=== PATIENT | female | born 1965 | race Caucasian/White ===

== ENCOUNTER 2017-10-04 16:41 | Emergency (ER) | payer OTHER ==
[2017-10-04] MEDS ORDERED: LORazepam 2 MG/ML INJ IM STA (16:52)
[2017-10-04] MEDS ORDERED: HALOPERIDOL LACTATE 5 MG/ML 1 ML VIAL IM STA (16:52)
[2017-10-04 17:03] VITALS: RESP 18
--- NOTE | 2017-10-04 17:15 | ED ---
General Adult HPI - General Chief complaint: Alcohol Stated complaint: ETOH Time Seen by Provider: 10/04/17 16:47 Source: patient, EMS Mode of arrival: EMS Limitations: no limitations - History of Present Illness Initial comments: 52 years old female intoxicated brought in by ambulance quite combative irritated and cooperative., She was uncooperative with the questions and exam to the point that she was danger to self as well as staff she was restrained and she was given Haldol 5 mg and Ativan 1 mg intramuscular for her safety and staff safety. - Related Data Home Medications Medication Instructions Recorded Confirmed Aspirin EC [Ecotrin Low Dose] 81 mg PO DAILY 12/18/16 12/18/16 EPINEPHrine (Auto Inject) [Epipen] 0.3 mg IM ONCE PRN 12/18/16 12/18/16 Previous Rx's Medication Instructions Recorded Albuterol Inhaler [Ventolin Hfa 2 puff INHALATION RT-QID PRN #1 12/22/16 Inhaler] inhaler Budesonide/Formoterol Fumarate 2 puff INHALATION BID #1 inhaler 12/22/16 [Symbicort 80-4.5 Mcg Inhaler] Escitalopram [Lexapro] 10 mg PO DAILY #30 tab 12/22/16 Folic Acid 1 mg PO DAILY@1200 #30 tab 12/22/16 Nicotine 14Mg/24Hr Patch [Habitrol] 1 patch TRANSDERM DAILY #12 patch 12/22/16 Thiamine [Vitamin B-1] 100 mg PO DAILY@1200 #30 tab 12/22/16 Allergies Allergy/AdvReac Type Severity Reaction Status Date / Time Penicillins Allergy Anaphylaxis Verified 12/18/16 17:32 spider venom Allergy Swelling Verified 12/18/16 17:31 Review of Systems ROS Statement: Those systems with pertinent positive or pertinent negative responses have been documented in the HPI. ROS Other: All systems not noted in ROS Statement are negative. Past Medical History Past Medical History: No Reported History Additional Past Medical History / Comment(s): Etoh History of Any Multi-Drug Resistant Organisms: None Reported Additional Past Surgical History / Comment(s): WISDOM TEETH Past Psychological History: Anxiety, Depression Smoking Status: Current every day smoker Past Alcohol Use History: Daily, Heavy Past Drug Use History: None Reported General Exam - General Exam Comments Initial Comments: General: Very combative and angry Skin: Skin is warm and dry and no rashes or lesions are noted. Eye: Pupils are equal, round and reactive to light, extra-ocular movements are intact; there is normal conjunctiva bilaterally. Ears, nose, mouth and throat: There are moist mucous membranes and no oral lesions. Neck: The neck is supple, there is no tenderness Cardiovascular: There is a regular rate and rhythm. No murmur, rub or gallop is appreciated. Respiratory: To auscultation bilateral, no wheezing no rhonchi no distress respiratory méndez noticed Gastrointestinal: Soft, non-distended, non-tender abdomen without masses or organomegaly noted. There is no rebound or guarding present. Bowel sounds are unremarkable. Back: There is no tenderness to palpation in the midline. There is no obvious deformity. Musculoskeletal: Normal ROM, no tenderness, There is no pedal edema. There is no calf tenderness or swelling. No cords were appreciated. Neurological: CN II-XII intact, Cranial nerves III through XII are intact. There are no obvious motor or sensory deficits. Coordination appears grossly intact. Speech is normal. Psychiatric: Cooperative combative irritable Limitations: no limitations Course Vital Signs 10/04/17 10/04/17 10/04/17 16:52 19:31 20:26 Temperature 97.4 F L Pulse Rate 96 91 84 Respiratory 18 18 18 Rate Blood Pressure 158/77 113/62 99/57 O2 Sat by Pulse 98 100 96 Oximetry 10/04/17 10/04/17 10/04/17 21:17 21:45 22:36 Temperature Pulse Rate 85 74 82 Respiratory 18 18 18 Rate Blood Pressure 110/65 103/65 103/65 O2 Sat by Pulse 96 100 98 Oximetry 10/04/17 10/05/17 23:26 00:26 Temperature Pulse Rate 78 78 Respiratory 18 18 Rate Blood Pressure 113/73 101/64 O2 Sat by Pulse 100 100 Oximetry At 230 am She awakened, alert, oriented, cooperative, she denies any homicidal or suicidal ideation, CBC, compressive metabolic panel, urine drug screen, head CT are normal she be discharged to go home as soon as his family member, Procedures - Restraint - Face to Face Restraint Occurrence 1 Patient's Immediate Situation: Endangers self safety, Endangers others' safety Patient's Reaction to the Intervention: Angry, Aggressive, Combative Patient's Medical & Behavioral Condition: Agitated Patient's Medical & Behavioral Condition - Comment: Very aggressive verbally and physically obviously danger to self and the staff Need to Continue or Terminate Restraint or Seclusion: Continue (Patient was restrained at 1700 approximately) Face to Face Eval of Restraint Date: 10/04/17 Face to Face Eval of Restraint Time: 17:19 Medical Decision Making - Lab Data Result diagrams: 10/04/17 17:26 10/04/17 17:26 Lab Results 10/04/17 10/04/17 10/04/17 Range/Units 17:13 17:26 17:26 WBC 6.3 (3.8-10.6) k/uL RBC 4.21 (3.80-5.40) m/uL Hgb 12.6 (11.4-16.0) gm/dL Hct 38.5 (34.0-46.0) % MCV 91.5 (80.0-100.0) fL MCH 29.9 (25.0-35.0) pg MCHC 32.7 (31.0-37.0) g/dL RDW 13.6 (11.5-15.5) % Plt Count 271 (150-450) k/uL Neutrophils % 55 % Lymphocytes % 32 % Monocytes % 7 % Eosinophils % 2 % Basophils % 1 % Neutrophils # 3.5 (1.3-7.7) k/uL Lymphocytes # 2.0 (1.0-4.8) k/uL Monocytes # 0.4 (0-1.0) k/uL Eosinophils # 0.1 (0-0.7) k/uL Basophils # 0.1 (0-0.2) k/uL Sodium 145 (137-145) mmol/L Potassium 3.5 (3.5-5.1) mmol/L Chloride 111 H (98-107) mmol/L Carbon Dioxide 24 (22-30) mmol/L Anion Gap 10 mmol/L BUN 12 (7-17) mg/dL Creatinine 0.67 (0.52-1.04) mg/dL Est GFR (CKD-EPI)AfAm >90 (>60 ml/min/1.73 sqM) Est GFR (CKD-EPI)NonAf >90 (>60 ml/min/1.73 sqM) Glucose 94 (74-99) mg/dL Calcium 8.8 (8.4-10.2) mg/dL Total Bilirubin 0.2 (0.2-1.3) mg/dL AST 24 (14-36) U/L ALT 23 (9-52) U/L Alkaline Phosphatase 107 (38-126) U/L Total Protein 7.0 (6.3-8.2) g/dL Albumin 3.9 (3.5-5.0) g/dL Urine Color Colorless Urine Appearance Clear (Clear) Urine pH 6.0 (5.0-8.0) Ur Specific Admire 1.002 (1.001-1.035) Urine Protein Negative (Negative) Urine Glucose (UA) Negative (Negative) Urine Ketones Negative (Negative) Urine Blood Negative (Negative) Urine Nitrite Negative (Negative) Urine Bilirubin Negative (Negative) Urine Urobilinogen <2.0 (<2.0) mg/dL Ur Leukocyte Esterase Negative (Negative) Urine Opiates Screen Not Detected (NotDetected) Ur Oxycodone Screen Not Detected (NotDetected) Urine Methadone Screen Not Detected (NotDetected) Ur Propoxyphene Screen Not Detected (NotDetected) Ur Barbiturates Screen Not Detected (NotDetected) U Tricyclic Antidepress Not Detected (NotDetected) Ur Phencyclidine Scrn Not Detected (NotDetected) Ur Amphetamines Screen Not Detected (NotDetected) U Methamphetamines Scrn Not Detected (NotDetected) U Benzodiazepines Scrn Not Detected (NotDetected) Urine Cocaine Screen Not Detected (NotDetected) U Marijuana (THC) Screen Not Detected (NotDetected) Disposition Clinical Impression: Intoxication Disposition: HOME SELF-CARE Condition: Good Is patient prescribed a controlled substance at d/c from ED?: No Referrals: None,Stated [Primary Care Provider] - 1-2 days
[2017-10-04 17:29] LABS: Appearance,Urine Clear (Clear); Bilirubin,Urine Negative (Negative); Blood,Urine Negative (Negative); Color,Urine Colorless; Glucose,Urine (UA) Negative (Negative); Ketones,Urine Negative (Negative); Leukocyte Esterase,Urine Negative (Negative); Nitrite,Urine Negative (Negative); Protein,Urine Negative (Negative); Specific Gravity,Urine 1.002 (1.001-1.035); Urobilinogen,Urine <2.0 mg/dL (<2.0)
[2017-10-04 17:39] LABS: Amphetamine Screen,Urine Not Detected (NotDetected); Barbiturate Screen,Urine Not Detected (NotDetected); Benzodiazepines Screen,Urine Not Detected (NotDetected); Cocaine Screen,Urine Not Detected (NotDetected); Methadone Screen, Urine Not Detected (NotDetected); Opiate Screen,Urine Not Detected (NotDetected); Oxycodone Screen, Urine Not Detected (NotDetected); Phencyclidine Screen,Urine Not Detected (NotDetected); Tricyclic Antidepressant,Urine Not Detected (NotDetected); Urn Cannabinoid Scrn Not Detected (NotDetected)
[2017-10-04 17:45] LABS: Basophils # (A) 0.1 k/uL (0-0.2); Basophils % (A) 1 %; Eosinophils # (A) 0.1 k/uL (0-0.7); Eosinophils % (A) 2 %; HCT 38.5 % (34.0-46.0); HGB 12.6 gm/dL (11.4-16.0); Lymphocytes % (A) 32 %; MCH 29.9 pg (25.0-35.0); MCHC 32.7 g/dL (31.0-37.0); MCV 91.5 fL (80.0-100.0); Mean Platelet Volume 8.1; Monocytes # (A) 0.4 k/uL (0-1.0); Monocytes % (A) 7 %; Neutrophils # (A) 3.5 k/uL (1.3-7.7); Neutrophils % (A) 55 %; Platelet Count 271 k/uL (150-450); RBC 4.21 m/uL (3.80-5.40); RDW 13.6 % (11.5-15.5); WBC 6.3 k/uL (3.8-10.6)
[2017-10-04 17:59] LABS: ALT 23 U/L (9-52); AST 24 U/L (14-36); Albumin 3.9 g/dL (3.5-5.0); Alkaline Phosphatase 107 U/L (38-126); Anion Gap 10 mmol/L; Blood Urea Nitrogen 12 mg/dL (7-17); Calcium 8.8 mg/dL (8.4-10.2); Carbon Dioxide 24 mmol/L (22-30); Chloride 111 mmol/L (98-107); Glucose 94 mg/dL (74-99); Potassium 3.5 mmol/L (3.5-5.1); Sodium 145 mmol/L (137-145); Total Bilirubin 0.2 mg/dL (0.2-1.3)
--- NOTE | 2017-10-04 18:29 | CT ---
EXAMINATION TYPE: CT brain wo con DATE OF EXAM: 10/04/2017 COMPARISON: None HISTORY: Altered mental status CT DLP: 855.4 mGycm Automated exposure control for dose reduction was used. FINDINGS: The ventricles and sulci appear normal. There is no mass effect nor midline shift. There is no sign o f intracranial hemorrhage. The calvarium is intact. IMPRESSION: NEGATIVE CT SCAN OF THE BRAIN.
[2017-10-05 04:29] VITALS: BP 138/83; PULSE 81; TEMP 98.3
== END 2017-10-05 04:25 | disposition home or self-care (01) ==
LOC: EC 16:41
DX: F10.129 Alcohol abuse with intoxication, unspecified (principal); R45.4 Irritability and anger; F17.200 Nicotine dependence, unspecified, uncomplicated; Z79.82 Long term (current) use of aspirin; Z88.0 Allergy status to penicillin; Z91.038 Other insect allergy status
CPT/HCPCS: 82075; 36415; 80053; 85025; 81003; 80306; 70450; 99285; 96372 ×2; J2060; J1630

== ENCOUNTER → 2018-01-14 | Outpatient (CLI) | payer OTHER ==
[2018-01-14 14:17] LABS: Basophils % (A) 1 %; Eosinophils # (A) 0.1 k/uL (0-0.7); Eosinophils % (A) 1 %; HCT 41.7 % (34.0-46.0); HGB 13.3 gm/dL (11.4-16.0); Lymphocytes # (A) 1.6 k/uL (1.0-4.8); Lymphocytes % (A) 33 %; MCV 97.1 fL (80.0-100.0); Mean Platelet Volume 7.5; Monocytes # (A) 0.3 k/uL (0-1.0); Monocytes % (A) 6 %; Neutrophils # (A) 2.7 k/uL (1.3-7.7); Neutrophils % (A) 55 %; Platelet Count 314 k/uL (150-450); RBC 4.29 m/uL (3.80-5.40); RDW 13.8 % (11.5-15.5); WBC 4.9 k/uL (3.8-10.6)
[2018-01-14 18:25] LABS: Albumin 4.3 g/dL (3.80-4.90); Albumin/Globulin Ratio 1.79 (1.20-2.10); Anion Gap 5.2 mmol/L (4.00-12.00); Calcium 9.2 mg/dL (8.7-10.3); Carbon Dioxide 28.8 mmol/L (21.6-31.8); Globulin 2.4 g/dL (2.1-3.7); Total Bilirubin 0.2 mg/dL (0.3-1.2); Total Protein 6.7 g/dL (6.2-8.2)
[2018-01-14 18:34] LABS: Rheumatoid Factor 13 IU/mL (0-15)
[2018-01-14 20:35] LABS: HIV 1 AB Non-Reactive (Non-Reactive); HIV AB P24 Non-Reactive (Non-Reactive); HIV P24 AG Non-Reactive (Non-Reactive)
[2018-01-14 22:43] LABS: Hemoglobin A1C 5.8 % (4.0-6.0)
[2018-01-15 13:06] LABS: ANA Pattern Speckled; ANA Pattern 2 See Footnote
[2018-01-15 14:16] LABS: Hepatitis A Antibody IgM Non-Reactive (Non-Reactive); Hepatitis B Core IgM Non-Reactive (Non-Reactive)
== END | disposition home or self-care (01) ==
LOC: LABWHC1 13:28
PROVIDERS: ATTEND Family Medicine
DX: I10 Essential (primary) hypertension (principal); B89 Unspecified parasitic disease; Z79.899 Other long term (current) drug therapy
CPT/HCPCS: 36415; 80053; 80074; 83036; 84443; 85025; 86038; 86039; 86431; 87390

== ENCOUNTER 2019-04-25 11:19 | Day surgery (SDC) | payer OTHER ==
[2019-04-24 10:23] VITALS: BMI 17.5
[~2019-04-25 11:19] MED LIST: DEXAMETHASONE SOD PHOSPHATE 10 MG/ML 1 ML VIAL IV ONE; HYDROmorphone 0.5 MG/0.5 ML SYRINGE IVP PRN; LACTATED RINGERS 1,000 ML IV SCH; MIDAZOLAM 2 MG/2 ML VIAL IV PRN; ONDANSETRON 4 MG/2 ML VIAL IVP ONE; Pre Op ABX Message 1 EACH MISC MISCELLANE ONE; SCOPOLAMINE 1.5MG/72HR PATCH TRANSDERM ONE
[2019-04-25 11:45] VITALS: TEMP 98.8
[2019-04-25] MEDS ORDERED: LIDOCAINE 1% (10MG/ML) FOR IV START INTRADERMA ONE (11:55)
[2019-04-25] MEDS ORDERED: LIDOCAINE 1% INJ 10MG/ML (20 ML MDV) ONE (13:00)
[2019-04-25] MEDS ORDERED: PROPOFOL 10 MG/ML 20 ML VIAL IV ONE (13:00)
[2019-04-25] MEDS ORDERED: MIDAZOLAM 2 MG/2 ML VIAL ONE (13:00)
[2019-04-25] MEDS ORDERED: fentaNYL (PF) 50 MCG/ML 2 ML AMP ONE (13:00)
[2019-04-25] MEDS ORDERED: BUPIVACAINE (PF) 0.5% 30 ML VIAL SQ ONE (13:30)
[2019-04-25] MEDS ORDERED: LIDOCAINE 2% (PF) 20 MG/ML 5 ML VIAL SQ ONE ×2 (13:31)
[2019-04-25] MEDS ORDERED: LIDOCAINE 2%-EPI 1:100,000 20 ML VIAL SQ ONE (13:49)
[2019-04-25] MEDS ORDERED: ROPIVACAINE 5 MG/ML 30 ML VIAL MISCELLANE ONE (13:49)
[2019-04-25 14:24] VITALS: RESP 16
[2019-04-25 14:53] VITALS: BP 139/79; PULSE 67
--- NOTE | 2019-04-30 14:34 | P.OP ---
Date of Procedure: 04/25/19 Preoperative Diagnosis: Left wrist volar ganglion cyst Postoperative Diagnosis: Left wrist volar ganglion cyst Procedure(s) Performed: Excision of left wrist volar ganglion cyst Anesthesia: MAC, local Surgeon: Erwin Montano Estimated Blood Loss (ml): 1 Pathology: other (cyst) Condition: stable Disposition: same day Indications for Procedure: The patient is a 53-year-old female who presented to the office with a left wrist mass and was diagnosed with a ganglion cyst. Treatment options (and associated risks and benefits) were reviewed; the patient elected to undergo surgical excision. In preop, additional questions were addressed and the patient wished to proceed with surgery. Consent forms were signed. The operative site was confirmed and marked. Description of Procedure: The patient was brought to the operative suite and positioned supine. The left arm was placed on a hand table and a tourniquet was applied. Monitored anesthesia was administered uneventfully. A time-out was performed, confirming patient identifiers, the operative side, site and the procedure to be performed: all team members expressed agreement. Using aseptic technique, local anesthetic was injected into the subcutaneous tissues around the planned incision. The left upper extremity was then prepped and draped in standard, sterile fashion. The limb was exsanguinated with an Esmarch and the tourniquet was inflated. Loupe magnification was utilized throughout the case for optimum visualization. A volar chevron incision was marked over the mass on the radial aspect of the wrist. The skin was sharply incised and the subcutaneous tissues were bluntly sp read, taking care to protect adjacent sensory nerve branches. The radial artery was identified and protected throughout the case. The mass was immediately identified in the subcutaneous tissues below the skin, just deep ulnar to the artery. It was encapsulated and somewhat lobulated with well-demarcated borders and had the appearance of a ganglion cyst. The cyst was mobilized and small perforating vessels were coagulated with bipolar cautery. The cyst was inadvertently decompressed during dissection and thick, clear mucinous fluid was expressed, consistent with a ganglion cyst. Once circum ferentially dissected free from the surrounding soft tissues, the cyst was sharply excised and sent for pathology. The cyst origin was identified at the STT joint and was gently debrided with a rongeur. The wound was visually and palpably explored: no residual soft tissue mass was appreciated. The tourniquet was released after 20 minutes at 250 mmHg; good hemostasis was achieved with manual pressure and bipolar cautery. The wound was thoroughly irrigated with normal saline. The incision was closed with interrupted 5-0 Nylon sutures. Additional local anesthetic with epinephrine was injected for adjunctive postoperative pain control and hemostasis. A sterile dressing was applied, followed by a resting plaster splint. All sponge, needle and instrument counts were correct at the end of the case. The patient tolerated the procedure well and was transferred to recovery in stable condition.
== END 2019-04-25 15:14 | disposition home or self-care (01) ==
LOC: OR 11:19
PROVIDERS: ATTEND Orthopaedic Surgery
DX: M67.432 Ganglion, left wrist (principal); F17.210 Nicotine dependence, cigarettes, uncomplicated; F41.9 Anxiety disorder, unspecified; F32.9 Major depressive disorder, single episode, unspecified; Z97.2 Presence of dental prosthetic device (complete) (partial); Z79.1 Long term (current) use of non-steroidal anti-inflammatories (NSAID); Z88.0 Allergy status to penicillin; Z88.8 Allergy status to other drugs, medicaments and biological substances; Z91.038 Other insect allergy status; Z91.040 Latex allergy status
CPT/HCPCS: 25111; 88304; J2250; J1100; J2405; J2001 ×2; J3010; J2795; J2704

== ENCOUNTER 2019-07-24 16:55 | Observation (INO) | payer OTHER ==
[2019-07-24] MEDS ORDERED: SODIUM CHLORIDE 0.9% 1,000 ML IV ONE ×2 (17:13→19:48)
[2019-07-24] MEDS ORDERED: ZIPRASIDONE 20 MG VIAL IM STA (17:14)
[2019-07-24] MEDS ORDERED: LORazepam 2 MG/ML INJ IM STA (17:14)
[2019-07-24] MEDS ORDERED: SODIUM CHLORIDE 0.9% 1,000 ML with MVI, ADULT NO.4 WITH VIT K 10 ML, THIAMINE 100 MG, F... IV ONE ×4 (17:30)
[2019-07-24 17:41] LABS: Basophils # (A) 0.1 k/uL (0-0.2); Basophils % (A) 1 %; Eosinophils # (A) 0.1 k/uL (0-0.7); Eosinophils % (A) 1 %; HCT 40.2 % (34.0-46.0); HGB 12.6 gm/dL (11.4-16.0); Hypochromasia Slight; Lymphocytes # (A) 2.2 k/uL (1.0-4.8); Lymphocytes % (A) 30 %; MCH 30.3 pg (25.0-35.0); MCHC 31.4 g/dL (31.0-37.0); MCV 96.2 fL (80.0-100.0); Mean Platelet Volume 7.9; Monocytes # (A) 0.3 k/uL (0-1.0); Monocytes % (A) 4 %; Neutrophils # (A) 4.4 k/uL (1.3-7.7); Neutrophils % (A) 59 %; Platelet Count 281 k/uL (150-450); RBC 4.17 m/uL (3.80-5.40); RDW 15.7 % (11.5-15.5); WBC 7.4 k/uL (3.8-10.6)
--- NOTE | 2019-07-24 17:49 | ED ---
General Adult HPI - General Chief complaint: Alcohol Stated complaint: ETOH Time Seen by Provider: 07/24/19 17:10 Source: patient, police, EMS, RN notes reviewed, old records reviewed Mode of arrival: EMS - History of Present Illness Initial comments: This is a 53-year-old female who presents to the emergency department intoxicated. According to police the patient was running around in traffic however she never made any comment about wanting to hurt herself she seemed to be distraught about a homosexual nephew. Patient is very uncooperative and will not give any history. At this time there is no other history available. Family members are in the waiting room and the police state that they need maybe petitioning the patient. - Related Data Home Medications Medication Instructions Recorded Confirmed EPINEPHrine (Auto Inject) [Epipen] 0.3 mg IM ONCE PRN 12/18/16 04/24/19 Cyanocobalamin (Vitamin B-12) 5,000 mcg PO DAILY 04/24/19 04/25/19 [Vitamin B-12] Naproxen Sodium [Aleve] 220 mg PO DAILY 04/24/19 04/24/19 Allergies Allergy/AdvReac Type Severity Reaction Status Date / Time Penicillins Allergy Anaphylaxis Verified 07/24/19 17:13 spider venom Allergy Swelling Verified 07/24/19 17:13 Review of Systems ROS Statement: Those systems with pertinent positive or pertinent negative responses have been documented in the HPI. ROS Other: All systems not noted in ROS Statement are negative. Past Medical History Past Medical History: No Reported History, Osteoarthritis (OA) Additional Past Medical History / Comment(s): GANGLION CYST LT WRIST History of Any Multi-Drug Resistant Organisms: None Reported Additional Past Surgical History / Comment(s): WISDOM TEETH Past Anesthesia/Blood Transfusion Reactions: No Reported Reaction Past Psychological History: Anxiety, Depression Smoking Status: Current every day smoker Past Alcohol Use History: None Reported Past Drug Use History: None Reported - Past Family History Father Family Medical History: Cancer General Exam - General Exam Comments Initial Comments: GENERAL: Patient is well-developed and well-nourished. Patient is nontoxic and well- hydrated and is in no acute distress. Patient is very uncooperative and appears to be intoxicated. ENT: Neck is soft and supple. No significant lymphadenopathy is noted. Oropharynx is clear. Moist mucous membranes. Neck has full range of motion without eliciting any pain. EYES: The sclera were anicteric and conjunctiva were pink and moist. Extraocular movements were intact and pupils were equal round and reactive to light. Eyelids were unremarkable. PULMONARY: Unlabored respirations. Good breath sounds bilaterally. No audible rales rhon chi or wheezing was noted. CARDIOVASCULAR: There is a regular rate and rhythm without any murmurs gallops or rubs. ABDOMEN: Soft and nontender with normal bowel sounds. SKIN: Skin is clear with no lesions or rashes and otherwise unremarkable. NEUROLOGIC: Patient is alert and oriented x3. Cranial nerves II through XII are grossly intact. Patient is able to move all 4 extremities. Normal speech, volume and content. Symmetrical smile. MUSCULOSKELETAL: Normal extremities with adequate strength and full range of motion. No lower extremity swelling or edema. No calf tenderness. LYMPHATICS: No significant lymphadenopathy is noted PSYCHIATRIC: Unable to assess Course Vital Signs 07/24/19 07/24/19 07/24/19 17:07 17:30 19:00 Temperature 98.3 F Pulse Rate 104 H 103 H 105 H Respiratory 22 18 18 Rate Blood Pressure 133/80 118/67 110/57 O2 Sat by Pulse 94 L 97 99 Oximetry Procedures - Restraint - Face to Face Restraint Occurrence 1 Patient's Immediate Situation: Endangers self safety, Endangers others' safety Patient's Reaction to the Intervention: Uncooperative, Aggressive, Combative Patient's Medical & Behavioral Condition: Agitated Need to Continue or Terminate Restraint or Seclusion: Continue Face to Face Eval of Restraint Date: 07/24/19 Face to Face Eval of Restraint Time: 17:06 Medical Decision Making - Medical Decision Making Patient was extremely uncooperative and aggressive. Patient was given Ativan and Geodon to control her. Patient was intoxicated and was petition by family so the patient will be admitted to [facility]. - Lab Data Result diagrams: 07/24/19 17:20 07/24/19 17: Lab Results 07/24/19 07/24/19 Range/Units 17:20 17:20 WBC 7.4 (3.8-10.6) k/uL RBC 4.17 (3.80-5.40) m/uL Hgb 12.6 (11.4-16.0) gm/dL Hct 40.2 (34.0-46.0) % MCV 96.2 (80.0-100.0) fL MCH 30.3 (25.0-35.0) pg MCHC 31.4 (31.0-37.0) g/dL RDW 15.7 H (11.5-15.5) % Plt Count 281 (150-450) k/uL Neutrophils % 59 % Lymphocytes % 30 % Monocytes % 4 % Eosinophils % 1 % Basophils % 1 % Neutrophils # 4.4 (1.3-7.7) k/uL Lymphocytes # 2.2 (1.0-4.8) k/uL Monocytes # 0.3 (0-1.0) k/uL Eosinophils # 0.1 (0-0.7) k/uL Basophils # 0.1 (0-0.2) k/uL Hypochromasia Slight Sodium 145 (137-145) mmol/L Potassium 3.8 (3.5-5.1) mmol/L Chloride 110 H (98-107) mmol/L Carbon Dioxide 21 L (22-30) mmol/L Anion Gap 14 mmol/L BUN 20 H (7-17) mg/dL Creatinine 0.76 (0.52-1.04) mg/dL Est GFR (CKD-EPI)AfAm >90 (>60 ml/min/1.73 sqM) Est GFR (CKD-EPI)NonAf >90 (>60 ml/min/1.73 sqM) Glucose 60 L (74-99) mg/dL Calcium 8.7 (8.4-10.2) mg/dL Total Bilirubin 0.1 L (0.2-1.3) mg/dL AST 27 (14-36) U/L ALT 13 (4-34) U/L Alkaline Phosphatase 116 (38-126) U/L Total Protein 7.5 (6.3-8.2) g/dL Albumin 4.1 (3.5-5.0) g/dL Serum Alcohol 284 H* mg/dL Disposition Clinical Impression: Alcoholic intoxication Disposition: ADMITTED IP TO THIS [facility] Referrals: Luis F Chaudhry MD [Primary Care Provider] - 1-2 days Time of Disposition: 19:47
[2019-07-24 17:59] LABS: ALT 13 U/L (4-34); AST 27 U/L (14-36); African American GFR (CKD) >90 (>60 ml/min/1.73 sqM); Albumin 4.1 g/dL (3.5-5.0); Alkaline Phosphatase 116 U/L (38-126); Anion Gap 14 mmol/L; Blood Urea Nitrogen 20 mg/dL (7-17); Calcium 8.7 mg/dL (8.4-10.2); Carbon Dioxide 21 mmol/L (22-30); Chloride 110 mmol/L (98-107); Glucose 60 mg/dL (74-99); Non-African American GFR(CKD) >90 (>60 ml/min/1.73 sqM); Potassium 3.8 mmol/L (3.5-5.1); Sodium 145 mmol/L (137-145); Total Bilirubin 0.1 mg/dL (0.2-1.3); Total Protein 7.5 g/dL (6.3-8.2)
[2019-07-24 18:12] LABS: Alcohol 284 mg/dL
[2019-07-24] MEDS ORDERED: LORazepam 2 MG/ML INJ IV PRN ×3 (19:49)
[2019-07-24] MEDS ORDERED: THIAMINE 100 MG/ML 2 ML VIAL IM STA (19:49)
[2019-07-25] MEDS ORDERED: THIAMINE 100 MG TAB PO SCH (07:30)
--- NOTE | 2019-07-25 13:47 | P.HPIM ---
History of Present Illness 53-year-old the female came in the emergency department after she was intoxicated brought in by police. Patient denies drinking alcohol every single day patient drinks about 3-4 times a week patient doesn't believe she will have withdrawals and wanted to go home. Patient was basically admitted for all call intoxication patient was petitioned and and was later cleared by psychiatric and information was provided by psychiatric to the patient regarding the help she can get as an outpatient for alcohol abuse. Patient denied any fever chills patient was really doesn't have any withdrawals. Patient denied any cough or sputum production. Review of Systems REVIEW OF SYSTEMS: CONSTITUTIONAL: No fever, no malaise, no fatigue. HEENT: No recent visual problems or hearing problems. Denied any sore throat. CARDIOVASCULAR: No chest pain, orthopnea, PND, no palpitations, no syncope. PULMONARY: No shortness of breath, no cough, no hemoptysis. GASTROINTESTINAL: No diarrhea, no nausea, no vomiting, no abdominal pain. NEUROLOGICAL: No headaches, no weakness, no numbness. HEMATOLOGICAL: Denies any bleeding or petechiae. GENITOURINARY: Denies any burning micturition, frequency, or urgency. MUSCULOSKELETAL/RHEUMATOLOGICAL: Denies any joint pain, swelling, or any muscle pain. ENDOCRINE: Denies any polyuria or polydipsia. The rest of the 14-point review of systems is negative. Past Medical History Past Medical History: No Reported History, Osteoarthritis (OA) Additional Past Medical History / Comment(s): GANGLION CYST LT WRIST History of Any Multi-Drug Resistant Organisms: None Reported Additional Past Surgical History / Comment(s): WISDOM TEETH Past Anesthesia/Blood Transfusion Reactions: No Reported Reaction Past Psychological History: Anxiety, Depression Smoking Status: Current every day smoker Past Alcohol Use History: None Reported Past Drug Use History: None Reported - Past Family History Father Family Medical History: Cancer Medications and Allergies Home Medications Medication Instructions Recorded Confirmed Type EPINEPHrine (Auto Inject) [Epipen] 0.3 mg IM ONCE PRN 12/18/16 04/24/19 History Cyanocobalamin (Vitamin B-12) 5,000 mcg PO DAILY 04/24/19 04/25/19 History [Vitamin B-12] Thiamine [Vitamin B-1] 100 mg PO DAILY #30 tablet 07/25/19 Rx Allergies Allergy/AdvReac Type Severity Reaction Status Date / Time Penicillins Allergy Anaphylaxis Verified 07/24/19 17:13 spider venom Allergy Swelling Verified 07/24/19 17:13 Physical Exam Vitals: Vital Signs Temp Pulse Resp BP Pulse Ox 07/25/19 13:14 96 16 133/96 99 07/25/19 11:15 86 16 132/86 99 07/25/19 08:22 76 16 132/79 95 07/25/19 07:37 107 H 16 141/84 91 L 07/25/19 06:49 98 F 101 H 18 124/79 98 07/25/19 04:53 98 F 101 H 18 131/74 98 07/25/19 02:32 94 17 122/65 96 07/25/19 00:00 98.4 F 90 18 120/69 95 07/24/19 23:00 99 18 126/73 97 07/24/19 21:30 93 18 157/92 97 07/24/19 19:00 105 H 18 110/57 99 07/24/19 17:30 103 H 18 118/67 97 07/24/19 17:07 98.3 F 104 H 22 133/80 94 L Intake and Output 07/24/19 07/25/19 07/25/19 22:59 06:59 14:59 Other: Weight 49.895 kg PHYSICAL EXAMINATION: GENERAL: The patient is alert and oriented x3, not in any acute distress. Well developed, well nourished. HEENT: Pupils are round and equally reacting to light. EOMI. No scleral icterus. No conjunctival pallor. Normocephalic, atraumatic. No pharyngeal erythema. No thyromegaly. CARDIOVASCULAR: S1 and S2 present. No murmurs, rubs, or gallops. PULMONARY: Chest is clear to auscultation, no wheezing or crackles. ABDOMEN: Soft, nontender, nondistended, normoactive bowel sounds. No palpable organomegaly. MUSCULOSKELETAL: No joint swelling or deformity. EXTREMITIES: No cyanosis, clubbing, or pedal edema. NEUROLOGICAL: Gross neurological examination did not reveal any focal deficits. SKIN: No rashes. Results CBC & Chem 7: 07/24/19 17:20 07/24/19 17:20 Labs: Abnormal Lab Results - Last 24 Hours (Table) 07/24/19 07/24/19 Range/Units 17:20 17:20 RDW 15.7 H (11.5-15.5) % Chloride 110 H (98-107) mmol/L Carbon Dioxide 21 L (22-30) mmol/L BUN 20 H (7-17) mg/dL Glucose 60 L (74-99) mg/dL Total Bilirubin 0.1 L (0.2-1.3) mg/dL Serum Alcohol 284 H* mg/dL Assessment and Plan Plan: -Alcohol intoxication patient is sober now patient received information so that she can get help as an outpatient for alcohol abuse -Alcohol withdrawal as per the patient history patient doesn't appear like ever had any alcohol withdrawals and as per the history she doesn't drink on regular basis will not have any withdrawals. And patient wanted to go home because of which are good and discharge the patient. -Depression patient was evaluated by psychiatric patient says she lost her mother recently because of which she is depressed and drinking. -Tachycardia due to dehydration which improved now with IV fluids Patient is being discharged today
--- NOTE | 2019-07-25 13:47 | P.DS ---
Providers Date of admission: 07/24/19 19:47 Attending physician: Tanmay Tran Consults: 07/24/19 19:48 Consult Physician Urgent Consulting Provider: Luis F Crowder Consult Reason/Comments: Family petition patient Do you want consulting provider notified?: Yes Primary care physician: Luis F [facility] Course: Please of her dementia for further details Plan - Discharge Summary New Discharge Prescriptions: New Thiamine [Vitamin B-1] 100 mg PO DAILY #30 tablet Discontinued Naproxen Sodium [Aleve] 220 mg PO DAILY No Action EPINEPHrine (Auto Inject) [Epipen] 0.3 mg IM ONCE PRN PRN Reason: Anaphylaxis Cyanocobalamin (Vitamin B-12) [Vitamin B-12] 5,000 mcg PO DAILY Discharge Medication List EPINEPHrine (Auto Inject) [Epipen] 0.3 mg IM ONCE PRN 12/18/16 [History] Cyanocobalamin (Vitamin B-12) [Vitamin B-12] 5,000 mcg PO DAILY 04/24/19 [History] Thiamine [Vitamin B-1] 100 mg PO DAILY #30 tablet 07/25/19 [Rx] Follow up Appointment(s)/Referral(s): Luis F Chaudhry MD [Primary Care Provider] - 3 Days Discharge Disposition: HOME SELF-CARE
[2019-07-25 13:54] LABS: Amphetamine Screen,Urine Not Detected (NotDetected); Barbiturate Screen,Urine Not Detected (NotDetected); Benzodiazepines Screen,Urine Detected (NotDetected); Cocaine Screen,Urine Not Detected (NotDetected); Methadone Screen, Urine Not Detected (NotDetected); Opiate Screen,Urine Not Detected (NotDetected); Oxycodone Screen, Urine Not Detected (NotDetected); Phencyclidine Screen,Urine Not Detected (NotDetected); Tricyclic Antidepressant,Urine Not Detected (NotDetected); Urn Cannabinoid Scrn Not Detected (NotDetected)
[2019-07-25 13:55] VITALS: BP 150/73; PULSE 98; RESP 18; TEMP 98.7
== END 2019-07-25 17:41 | disposition home or self-care (01) ==
LOC: EC 16:55 → 5NMEDONC 19:47
PROVIDERS: ADMIT Internal Medicine; ATTEND Internal Medicine
DX: F10.129 Alcohol abuse with intoxication, unspecified (principal); R00.0 Tachycardia, unspecified; E86.0 Dehydration; M19.90 Unspecified osteoarthritis, unspecified site; F41.9 Anxiety disorder, unspecified; Z78.1 Physical restraint status; R45.1 Restlessness and agitation; F32.9 Major depressive disorder, single episode, unspecified; F17.200 Nicotine dependence, unspecified, uncomplicated; Z80.9 Family history of malignant neoplasm, unspecified; M67.432 Ganglion, left wrist; Z79.1 Long term (current) use of non-steroidal anti-inflammatories (NSAID); Z79.899 Other long term (current) drug therapy; Z88.0 Allergy status to penicillin; Z91.038 Other insect allergy status
CPT/HCPCS: 96361 ×2; 96365; 96366 ×2; 96372; 99285; 36415; 80053; 85025; 80306; G0378 ×2; G0480; U0003; J2060; J3411; J3486; 80320

== ENCOUNTER 2019-11-12 21:55 | Emergency (ER) | payer OTHER ==
[2019-11-12 22:07] VITALS: RESP 16; TEMP 98.2
--- NOTE | 2019-11-12 22:50 | ED ---
Psych HPI - General Chief Complaint: Psychiatric Symptoms Stated Complaint: Mental Health Time Seen by Provider: 11/12/19 22:15 Source: patient, RN notes reviewed, old records reviewed Mode of arrival: ambulatory - History of Present Illness Initial Comments: This is a 54-year-old female presents for psychiatric evaluation patient is brought in under petition by family for psychiatric evaluation here. Patient presents since from recovery house where she is for alcoholism, apparently per other members of the house she is seeing people are talking or not there MD Complaint: altered mental status -: days(s) Associated Psychiatric Symptoms: depression, other (History of alcoholism) Quality: constant Improves With: none Worsens With: none Context: recent alcohol abuse, not taking psychiatric medications Associated Symptoms: denies other symptoms Treatments Prior to Arrival: placed on mental health hold If Self Harm: admits thoughts of self harm - Related Data Home Medications Medication Instructions Recorded Confirmed EPINEPHrine (Auto Inject) [Epipen] 0.3 mg IM ONCE PRN 12/18/16 04/24/19 Cyanocobalamin (Vitamin B-12) 5,000 mcg PO DAILY 04/24/19 04/25/19 [Vitamin B-12] Previous Rx's Medication Instructions Recorded Thiamine [Vitamin B-1] 100 mg PO DAILY #30 tablet 07/25/19 Allergies Allergy/AdvReac Type Severity Reaction Status Date / Time latex Allergy Unknown Verified 11/12/19 21:58 Penicillins Allergy Anaphylaxis Verified 11/12/19 21:58 spider venom Allergy Swelling Verified 11/12/19 21:58 Sulfa (Sulfonamide Allergy Unknown Verified 11/12/19 21:58 Antibiotics) Review of Systems ROS Statement: Those systems with pertinent positive or pertinent negative responses have been documented in the HPI. ROS Other: All systems not noted in ROS Statement are negative. Past Medical History Past Medical History: No Reported History, Osteoarthritis (OA) Additional Past Medical History / Comment(s): GANGLION CYST LT WRIST History of Any Multi-Drug Resistant Organisms: None Reported Additional Past Surgical History / Comment(s): WISDOM TEETH Past Anesthesia/Blood Transfusion Reactions: No Reported Reaction Past Psychological History: Anxiety, Depression Smoking Status: Current every day smoker Past Alcohol Use History: Abuse, Daily Past Drug Use History: None Reported - Past Family History Father Family Medical History: Cancer General Exam Limitations: no limitations General appearance: alert, in no apparent distress, anxious Head exam: Present: atraumatic, normocephalic, normal inspection Eye exam: Present: normal appearance, PERRL, EOMI. Absent: scleral icterus, conjunctival injection, periorbital swelling ENT exam: Present: normal exam, mucous membranes moist Neck exam: Present: normal inspection. Absent: tenderness, meningismus, lymphadenopathy Respiratory exam: Present: normal lung sounds bilaterally. Absent: respiratory distress, wheezes, rales, rhonchi, stridor Cardiovascular Exam: Present: regular rate, normal rhythm, normal heart sounds. Absent: systolic murmur, diastolic murmur, rubs, gallop, clicks GI/Abdominal exam: Present: soft, normal bowel sounds. Absent: distended, tenderness, guarding, rebound, rigid Extremities exam: Present: normal inspection, full ROM, normal capillary refill. Absent: tenderness, pedal edema, joint swelling, calf tenderness Back exam: Present: normal inspection Neurological exam: Present: alert, oriented X3, CN II-XII intact Psychiatric exam: Present: normal affect, normal mood Skin exam: Present: warm, dry, intact, normal color. Absent: rash Course Vital Signs 11/12/19 21:58 Temperature 98.2 F Pulse Rate 91 Respiratory 16 Rate Blood Pressure 187/102 O2 Sat by Pulse 97 Oximetry - Reevaluation(s) Reevaluation #1: 11/13/19 02:51 Medical record is reviewed Reevaluation #2: 11/13/19 02:51 Patient seen in [facility] Medical Decision Making - Medical Decision Making 54 female seen and evaluated psychiatry, patient stable for discharge home, did sign safety plan - Lab Data Lab Results 11/13/19 Range/Units 00:14 Urine Color Light Yellow Urine Appearance Clear (Clear) Urine pH 5.5 (5.0-8.0) Ur Specific Dawson 1.006 (1.001-1.035) Urine Protein Negative (Negative) Urine Glucose (UA) Negative (Negative) Urine Ketones Negative (Negative) Urine Blood Negative (Negative) Urine Nitrite Negative (Negative) Urine Bilirubin Negative (Negative) Urine Urobilinogen <2.0 (<2.0) mg/dL Ur Leukocyte Esterase Trace H (Negative) Urine RBC 1 (0-5) /hpf Urine WBC 3 (0-5) /hpf Ur Squamous Epith Cells 3 (0-4) /hpf Urine Bacteria Occasional H (None) /hpf Urine Mucus Rare H (None) /hpf Urine Opiates Screen Not Detected (NotDetected) Ur Oxycodone Screen Not Detected (NotDetected) Urine Methadone Screen Not Detected (NotDetected) Ur Propoxyphene Screen Not Detected (NotDetected) Ur Barbiturates Screen Not Detected (NotDetected) U Tricyclic Antidepress Not Detected (NotDetected) Ur Phencyclidine Scrn Not Detected (NotDetected) Ur Amphetamines Screen Not Detected (NotDetected) U Methamphetamines Scrn Not Detected (NotDetected) U Benzodiazepines Scrn Not Detected (NotDetected) Urine Cocaine Screen Not Detected (NotDetected) U Marijuana (THC) Screen Not Detected (NotDetected) Disposition Clinical Impression: Psychosis, Alcohol use disorder Disposition: HOME SELF-CARE Condition: Fair Instructions (If sedation given, give patient instructions): Altered Mental Status (ED), Brief Psychotic Disorder (ED) Is patient prescribed a controlled substance at d/c from ED?: No Referrals: Luis F Chaudhry MD [Primary Care Provider] - 1-2 days
[2019-11-13 00:28] LABS: Appearance,Urine Clear (Clear); Bacteria,Urine Occasional /hpf; Bilirubin,Urine Negative (Negative); Blood,Urine Negative (Negative); Color,Urine Light Yellow; Glucose,Urine (UA) Negative (Negative); Ketones,Urine Negative (Negative); Leukocyte Esterase,Urine Trace (Negative); Mucus,Urine Rare /hpf; Nitrite,Urine Negative (Negative); PH, Urine 5.5 (5.0-8.0); Protein,Urine Negative (Negative); RBC,Urine 1 /hpf (0-5); Specific Gravity,Urine 1.006 (1.001-1.035); Squamous Epithelial Cell,Urine 3 /hpf (0-4); Urobilinogen,Urine <2.0 mg/dL (<2.0); WBC,Urine 3 /hpf (0-5)
[2019-11-13 00:33] LABS: Amphetamine Screen,Urine Not Detected (NotDetected); Barbiturate Screen,Urine Not Detected (NotDetected); Benzodiazepines Screen,Urine Not Detected (NotDetected); Cocaine Screen,Urine Not Detected (NotDetected); Methadone Screen, Urine Not Detected (NotDetected); Opiate Screen,Urine Not Detected (NotDetected); Oxycodone Screen, Urine Not Detected (NotDetected); Phencyclidine Screen,Urine Not Detected (NotDetected); Tricyclic Antidepressant,Urine Not Detected (NotDetected); Urn Cannabinoid Scrn Not Detected (NotDetected)
[2019-11-13 04:01] VITALS: BP 125/80; PULSE 60
== END 2019-11-13 04:24 | disposition home or self-care (01) ==
LOC: EEVIPCON 21:55 → EC 21:55
DX: F29 Unspecified psychosis not due to a substance or known physiological condition (principal); F10.99 Alcohol use, unspecified with unspecified alcohol-induced disorder; F17.200 Nicotine dependence, unspecified, uncomplicated; Z88.0 Allergy status to penicillin; Z88.2 Allergy status to sulfonamides; Z91.040 Latex allergy status; Z91.038 Other insect allergy status
CPT/HCPCS: 80306; 81001; 82075; 99284

== ENCOUNTER 2019-11-13 12:56 | Inpatient (IN) | payer MEDICAID, OTHER ==
[2019-11-13 14:14] LABS: Amphetamine Screen,Urine Not Detected (NotDetected); Barbiturate Screen,Urine Not Detected (NotDetected); Benzodiazepines Screen,Urine Not Detected (NotDetected); Cocaine Screen,Urine Not Detected (NotDetected); Methadone Screen, Urine Not Detected (NotDetected); Opiate Screen,Urine Not Detected (NotDetected); Oxycodone Screen, Urine Not Detected (NotDetected); Phencyclidine Screen,Urine Not Detected (NotDetected); Tricyclic Antidepressant,Urine Not Detected (NotDetected); Urn Cannabinoid Scrn Not Detected (NotDetected)
[2019-11-13] MEDS ORDERED: ZIPRASIDONE 20 MG VIAL IM PRN (17:52)
[2019-11-13] MEDS ORDERED: MAGNESIUM HYDROXIDE 2,400 MG/10 ML CUP PO PRN (17:52)
--- NOTE | 2019-11-13 18:01 | XR ---
EXAMINATION TYPE: XR foot complete LT DATE OF EXAM: 11/13/2019 COMPARISON: None HISTORY: Pain TECHNIQUE: 3 views FINDINGS: I see no fracture nor dislocation. The little toe is intact. I see no focal bone destructio n. Metatarsals are intact. There is possible tiny air bubble in the soft tissues adjacent to the prox imal phalanx of the little toe. IMPRESSION: Possible tiny air bubble. No fracture seen. No sign of osteomyelitis.
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
[2019-11-13] MEDS: ACETAMINOPHEN TAB 325 MG TAB PO PRN (20:15)
[2019-11-13] MEDS: OLANZapine 2.5 MG TAB PO SCH (20:19)
[2019-11-13] MEDS: NICOTINE 21MG/24HR PATCH TRANSDERM SCH (20:19)
[2019-11-14] MEDS: ACETAMINOPHEN TAB 325 MG TAB PO PRN (08:46)
[2019-11-14] MEDS: NICOTINE 21MG/24HR PATCH TRANSDERM SCH (08:46)
[2019-11-14] MEDS: SERTRALINE 50 MG TAB PO SCH (09:45)
[2019-11-14] MEDS ORDERED: LORazepam 1 MG TAB PO PRN (09:54)
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
[2019-11-14] MEDS: MULTIVITAMINS, THERA 1 EACH TAB PO SCH (11:20)
[2019-11-14] MEDS: FOLIC ACID 1 MG TAB PO SCH (11:20)
[2019-11-14] MEDS: THIAMINE 100 MG TAB PO SCH (11:20)
[2019-11-14] MEDS: IBUPROFEN 600 MG TAB PO PRN (11:21)
[2019-11-14 13:09] LABS: Basophils # (A) 0.1 k/uL (0-0.2); Basophils % (A) 1 %; Eosinophils # (A) 0.1 k/uL (0-0.7); Eosinophils % (A) 1 %; HCT 41.7 % (34.0-46.0); HGB 12.9 gm/dL (11.4-16.0); Lymphocytes # (A) 1.8 k/uL (1.0-4.8); Lymphocytes % (A) 20 %; MCH 29.5 pg (25.0-35.0); MCHC 30.9 g/dL (31.0-37.0); MCV 95.6 fL (80.0-100.0); Mean Platelet Volume 7.6; Monocytes # (A) 0.4 k/uL (0-1.0); Monocytes % (A) 4 %; Neutrophils # (A) 6.3 k/uL (1.3-7.7); Neutrophils % (A) 72 %; Platelet Count 307 k/uL (150-450); RBC 4.36 m/uL (3.80-5.40); RDW 13.4 % (11.5-15.5); WBC 8.8 k/uL (3.8-10.6)
[2019-11-14 13:34] LABS: ALT 14 U/L (4-34); AST 24 U/L (14-36); African American GFR (CKD) >90 (>60 ml/min/1.73 sqM); Alkaline Phosphatase 116 U/L (38-126); Anion Gap 5 mmol/L; Blood Urea Nitrogen 15 mg/dL (7-17); Calcium 9.4 mg/dL (8.4-10.2); Carbon Dioxide 30 mmol/L (22-30); Chloride 104 mmol/L (98-107); Glucose 155 mg/dL (74-99); Non-African American GFR(CKD) >90 (>60 ml/min/1.73 sqM); Potassium 4.6 mmol/L (3.5-5.1); Sodium 139 mmol/L (137-145); Total Bilirubin 0.4 mg/dL (0.2-1.3); Total Protein 7.3 g/dL (6.3-8.2)
[2019-11-14 15:22] VITALS: BMI 17.4
[2019-11-14 19:47] LABS: Hemoglobin A1C 6.2 % (4.0-6.0)
[2019-11-14] MEDS: OLANZapine 2.5 MG TAB PO SCH (20:55)
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
[2019-11-15] MEDS: THIAMINE 100 MG TAB PO SCH (09:05)
[2019-11-15] MEDS: MULTIVITAMINS, THERA 1 EACH TAB PO SCH (09:05)
[2019-11-15] MEDS: FOLIC ACID 1 MG TAB PO SCH (09:05)
[2019-11-15] MEDS: SERTRALINE 50 MG TAB PO SCH (09:05)
[2019-11-15] MEDS: IBUPROFEN 600 MG TAB PO PRN ×2 (09:05→17:47)
[2019-11-15] MEDS: NICOTINE 21MG/24HR PATCH TRANSDERM SCH (09:05)
--- NOTE | 2019-11-15 15:52 | P.PN ---
Progress Note - Text Progress Note Date: 11/15/19 Subjective: Patient was seen today as a cross coverage for Dr. Gama. The patient was evaluated, chart reviewed, case discussed with the treatment team. Patient reports good sleep last night, and appetite was reported as "fair ". Patient has been going to some groups and other unit activities. The patient is compliant with her medications and denies any adverse reactions. Patient reports her depression is better today and he denies any suicidal or homicidal ideation. She denies any severe mood swings, anxiety, manic, or psychotic symptoms including hallucinations. Patient was fixated on pain and he claimed that his pus coming out from her left limited to even x-ray was negative. Patient claimed that she was on antibiotic at home which was not prescribed by medical team. Review of home medication the patient was placed on doxycycline Objective: Vitals has been reviewed. Mental status examination; Appearance: The patient appears stated age, adequately groomed and dressed, no specific features. Gait/posture: Normal gait, Normal arm swinging: No abnormal movements. Attitude and behavior: engaged, cooperative, fair eye contact. Motor activity: Normal psychomotor activity Speech: Normal rate, tone. Mood: Anxious Affect: Constricted Thought form: goal-directed, linear, coherent. Thought content: Non-delusional, denies suicidal thoughts, denies homicidal thoughts, denies intentions or plans. Perception: Denies any auditory or visual hallucinations Attention: No impairment. Orientation: Patient patient was fully oriented to time place person and situation. Insight: Patient has fair insight about her psychiatric disorder. Judgment: Patient has fair judgment about her psychiatric treatment. Left little toe shows some signs of inflammation but no pus or discharge. Assessment: Depressive disorder, unspecified. Alcohol use disorder. Nicotine use disorder. Plan: Continue inpatient level of care due to need for further stabilization Precautions: Continue 15 minutes check for safety. Consider medical consultation if any acute medical issues arise. Consult was medical team to resume antibiotic treatment for skin infection. Provide the patient individual, group therapy, substance use disorder counseling to give better insight and learn coping skills. Medications: Continue Zoloft 50 mg daily for depression. Zyprexa 2.5 mg at bedtime to help with mood stabilization and insomnia Continue multivitamin, thiamine, and folic acid. Continue as needed medications for psychiatric emergencies including psychosis, agitation and anxiety. Continue non-psychiatric medications for medical conditions as recommended by the medical team. Discharge patient to OUTPATIENT services upon a stabilization
[2019-11-15] MEDS: DOXYCYCLINE 100 MG CAP PO SCH (20:58)
[2019-11-15] MEDS: OLANZapine 2.5 MG TAB PO SCH (20:59)
[2019-11-16] MEDS: THIAMINE 100 MG TAB PO SCH (09:06)
[2019-11-16] MEDS: DOXYCYCLINE 100 MG CAP PO SCH ×2 (09:06→20:56)
[2019-11-16] MEDS: MULTIVITAMINS, THERA 1 EACH TAB PO SCH (09:06)
[2019-11-16] MEDS: FOLIC ACID 1 MG TAB PO SCH (09:06)
[2019-11-16] MEDS: SERTRALINE 50 MG TAB PO SCH (09:06)
[2019-11-16] MEDS: NICOTINE 21MG/24HR PATCH TRANSDERM SCH (09:06)
[2019-11-16] MEDS: MAG HYDROX/AL HYDROX/SIMETH 30 ML CUP PO PRN ×2 (09:08→17:03)
--- NOTE | 2019-11-16 13:40 | P.PN ---
Progress Note - Text Progress Note Date: 11/16/19 Subjective: Patient was seen today as a cross coverage for Dr. Gama. The patient was evaluated, chart reviewed, case discussed with the treatment team. Patient continues to report feeling stable emotionally, denies depression, feeling hopeless, or suicidal. She denies any hallucinations, paranoid ideation, severe mood swings, or homicidal ideation. No manic symptoms have been reported or noticed. Patient was a started on antibiotic treatment for her skin infection at her little toe as per home medication. She continues to have good sleep, fair appetite, attending groups, and taking her medications without any side effects. Objective: Vitals has been reviewed. Mental status examination; Appearance: The patient appears stated age, adequately groomed and dressed, no specific features. Gait/posture: Normal gait, Normal arm swinging: No abnormal movements. Attitude and behavior: engaged, cooperative, fair eye contact. Motor activity: Normal psychomotor activity Speech: Normal rate, tone. Mood: Anxious Affect: Constricted Thought form: goal-directed, linear, coherent. Thought content: Non-delusional, denies suicidal thoughts, denies homicidal thoughts, denies intentions or plans. Perception: Denies any auditory or visual hallucinations Attention: No impairment. Orientation: Patient patient was fully oriented to time place person and situation. Insight: Patient has fair insight about her psychiatric disorder. Judgment: Patient has fair judgment about her psychiatric treatment. Left little toe shows some signs of inflammation but no pus or discharge. Assessment: Depressive disorder, unspecified. Alcohol use disorder. Nicotine use disorder. Plan: Continue inpatient level of care due to need for further stabilization Precautions: Continue 15 minutes check for safety. Consider medical consultation if any acute medical issues arise. Consult was medical team to resume antibiotic treatment for skin infection. Provide the patient individual, group therapy, substance use disorder counseling to give better insight and learn coping skills. Medications: Continue Zoloft 50 mg daily for depression. Zyprexa 2.5 mg at bedtime to help with mood stabilization and insomnia Continue multivitamin, thiamine, and folic acid. Continue as needed medications for psychiatric emergencies including psychosis, agitation and anxiety. Continue non-psychiatric medications for medical conditions as recommended by the medical team. Discharge patient to OUTPATIENT services upon a stabilization
[2019-11-16] MEDS: OLANZapine 2.5 MG TAB PO SCH (20:56)
--- NOTE | 2019-11-16 23:22 | PN ---
PROGRESS NOTE A 54-year-old white female who is complaining of a toe cellulitis. She is started on some antibiotics given by a physician and we are going to xena tape her 4th toe to the 5th toe as there is questionable discoloration secondary to bruising. As far as depression, continue her current medications. CARDIOVASCULAR: S1, S2. LUNGS: Clear. INTEGUMENT: As mentioned above. ASSESSMENT: Cellulitis/toe contusion with bruising. Xena tape the toes. Continue with the antibiotics. Prognosis is good. MMODL / IJN: [id number] /
[2019-11-17] MEDS: FOLIC ACID 1 MG TAB PO SCH (09:07)
[2019-11-17] MEDS: NICOTINE 21MG/24HR PATCH TRANSDERM SCH (09:07)
[2019-11-17] MEDS: MULTIVITAMINS, THERA 1 EACH TAB PO SCH (09:07)
[2019-11-17] MEDS: DOXYCYCLINE 100 MG CAP PO SCH ×2 (09:07→21:13)
[2019-11-17] MEDS: THIAMINE 100 MG TAB PO SCH (09:08)
[2019-11-17] MEDS: IBUPROFEN 600 MG TAB PO PRN (09:08)
[2019-11-17] MEDS: SERTRALINE 50 MG TAB PO SCH (09:08)
--- NOTE | 2019-11-17 11:11 | P.PN ---
Progress Note - Text Progress Note Date: 11/17/19 Interval History: Patient was seen sitting in on group this morning and was directable and agree able to speak with proposal manager writer in the office. Patient appeared to be more cooperative the proposal manager writer however continues to be demanding and needy. She spoke repeatedly about not getting enough attention on the unit and spoke repeatedly about her medical problems and also her to which she is feeling pain in. She claims that she did not speak with Dr. Light over the weekend and was requesting to see him once again. She claims that her toe is looking "darker" and is continuing to speak about pain. According to Dr. Light's note it states that patient to be continued on the antibiotic and also have the fourth and fifth toe wrapped together and this was explained to patient and patient verbally understood and agreed. She states that she has been sleeping fairly at nighttime approximately 6-8 hours. She denied any overnight complaints. She states that she does not know where she will be going upon discharge and continues to blame her sister for bringing her to the hospital and having her ad mitted. Patient claims that she would likely defer today with the manager non profit however states that she has another court hearing for guardianship coming up. At this time patient denies any suicidal or homical ideations, intent or plan. Patient denies any auditory, visual hallucinations. Patient denies any side effects from the medications and has been compliant with meds. Mental Status Exam: General Appearance: Patient appears to be stated age is alert, mildly more cooperative today, continues to be needy. Patient appears to have improving hygiene and grooming. Thin/frail appearance. Behavior: Patient is seated without any agitated behavior. Mildly more cooperative today, needy and demanding. Speech: Patient's speech is fluent and nonpressured. Mood/Affect: Patient reports their mood is depressed and aggravated, affect is congruent Suicidality/Homicidality: Patient denies having any homicidal ideation intent or plan. Denies any suicidal ideations intent or plan Perceptions: Patient denies any visual hallucinations and denies any auditory hallucinations Though content/process: Somatically preoccupied. Rambles at times, tangential. Memory and concentration: AOX3, grossly intact for the purposes of this session. Can spell "WORLD" backwards Judgment and insight: poor, improving mildly Assessment Depressive disorder unspecified alcohol use disorder Nicotine dependence Plan: -Patient continues to meet criteria for inpatient psychiatric admission for symptom stabilization and safety. Patient has signed medication consent form. Patient is currently under involuntary status and will meet with manager non profit today for deferral. -Medications: Continue with Zoloft 50 mg daily for mood/anxiety, Zyprexa 2.5 mg nightly for mood stabilization/insomnia. -thiamine, MVM for etoh use -When necessary Ativan and Geodon for agitation/aggression. -Foot x-ray completed in the ER on admission, shows possible tiny air bubble no fracture and no osteomyelitis was seen. Appreciate recommendations from Dr. Zaragoza to continue with antibiotics and will continue with xena taping 4th and 5th toes. -NRT - nicotine patch -SW on board for discharge planning. Encouraged the patient to participate in milieu. lawn maintenance worker to look into placement options if patient can go to [facility] or [facility] if not then retirement. lawn maintenance worker will also recheck the patient's sister from further senior office assistant with disposition and planning. Likely discharge Sunday
[2019-11-17] MEDS: OLANZapine 2.5 MG TAB PO SCH (21:13)
--- NOTE | 2019-11-17 22:34 | PN ---
PROGRESS NOTE This patient is a 54-year-old white female who had her foot run over by a wheelchair. She states her toe was purple and mildly inflamed. Continues on doxycycline antibiotics. CARDIOVASCULAR: S1, S2. LUNGS: Clear. GI: Soft. HEMATOLOGY: Negative Homans. PSYCH: Fair mood and affect. Integument shows toes slightly purple. Decreased pulses, dorsalis pedis, posterior tibial of the leg. Continue current treatment. Arterial Doppler will be ordered of the legs to rule out poor circulation to the toe. Continue on doxycycline antibiotics. MMODL / IJN: [id number] /
[2019-11-18] MEDS: THIAMINE 100 MG TAB PO SCH (09:24)
[2019-11-18] MEDS: SERTRALINE 50 MG TAB PO SCH (09:24)
[2019-11-18] MEDS: MULTIVITAMINS, THERA 1 EACH TAB PO SCH (09:24)
[2019-11-18] MEDS: FOLIC ACID 1 MG TAB PO SCH (09:24)
[2019-11-18] MEDS: NICOTINE 21MG/24HR PATCH TRANSDERM SCH (09:25)
[2019-11-18] MEDS: DOXYCYCLINE 100 MG CAP PO SCH ×2 (09:25→21:19)
[2019-11-18] MEDS: IBUPROFEN 600 MG TAB PO PRN (09:26)
--- NOTE | 2019-11-18 10:16 | P.PN ---
Progress Note - Text Progress Note Date: 11/18/19 Interval History: Patient was seen after taking her medications this morning and was directable and agreeable to speak with policy writer typist in the office. Patient appeared to be more cooperative today during the conversation. She appears to be less needy today and less preoccupied with the pain in her foot. She states that it has been mildly improving. She claims that she was seen by her primary care doctor yesterday and claims that he will need further follow-up once she is discharged. Patient offered overnight complaints and states that she slept well. She states that she is doing better on the medications. She continues to blame her sister for bringing her to the hospital and having her admitted. She claimed that she met with the business systems consultant yesterday and deferred court and is agreeable to continue on with treatment. She denies any depression today or anxiety. At this time patient denies any suicidal or homical ideations, intent or plan. Patient denies any auditory, visual hallucinations. Patient denies any side effects from the medications and has been compliant with meds. Mental Status Exam: General Appearance: Patient appears to be stated age is alert, more cooperative today, less needy. Patient appears to have improving hygiene and grooming. Thin/frail appearance. Behavior: Patient is seated without any agitated behavior. Less needy and demanding today. Speech: Patient's speech is fluent and nonpressured. Mood/Affect: Patient reports their mood is ok, mildly improving, affect is congruent Suicidality/Homicidality: Patient denies having any homicidal ideation intent or plan. Denies any suicidal ideations intent or plan Perceptions: Patient denies any visual hallucinations and denies any auditory hallucinations Though content/process: less somatically preoccupied. More logical, and goal oriented. Memory and concentration: AOX3, grossly intact for the purposes of this session Judgment and insight: poor, improving mildly Assessment Depressive disorder unspecified alcohol use disorder Nicotine dependence Plan: -Patient continues to meet criteria for inpatient psychiatric admission for symptom stabilization and safety. Patient has signed medication consent form. Patient signed deferral on 11/17/2019. -Medications: Continue with Zoloft 50 mg daily for mood/anxiety, Zyprexa 2.5 mg nightly for mood stabilization/insomnia. -thiamine, MVM for etoh use -When necessary Ativan and Geodon for agitation/aggression. -Foot x-ray completed in the ER on admission, shows possible tiny air bubble no fracture and no osteomyelitis was seen. Appreciate recommendations from Dr. Zaragoza to continue with antibiotics and will continue with xena taping 4th and 5th toes. Patient will need further follow-up with her primary care physician upon discharge. -NRT - nicotine patch -SW on board for discharge planning. Encouraged the patient to participate in milieu. cement storage worker to look into placement options if patient can go to [facility] or [facility] if not then long-term. cement storage worker will also recheck the patient's sister from further assistant corporate secretary with disposition and planning. Likely discharge tomorrow.
[2019-11-18] MEDS: OLANZapine 2.5 MG TAB PO SCH (21:19)
[2019-11-19 06:48] VITALS: RESP 16
[2019-11-19 07:47] VITALS: BP 141/95; PULSE 94
[2019-11-19] MEDS: SERTRALINE 50 MG TAB PO SCH (07:47)
[2019-11-19] MEDS: NICOTINE 21MG/24HR PATCH TRANSDERM SCH (07:47)
[2019-11-19] MEDS: FOLIC ACID 1 MG TAB PO SCH (07:47)
[2019-11-19] MEDS: DOXYCYCLINE 100 MG CAP PO SCH (07:47)
[2019-11-19] MEDS: THIAMINE 100 MG TAB PO SCH (07:47)
[2019-11-19] MEDS: MULTIVITAMINS, THERA 1 EACH TAB PO SCH (07:47)
[2019-11-19] MEDS: ACETAMINOPHEN TAB 325 MG TAB PO PRN (07:51)
[2019-11-19 07:52] VITALS: TEMP 97.9
--- NOTE | 2019-11-19 11:26 | P.DS ---
Providers Date of admission: 11/13/19 17:50 Expected date of discharge: 11/19/19 Attending physician: Michael Gama MD Consults: 11/13/19 17:52 Consult Physician Routine Consulting Provider: Luis F Chaudhry Consult Reason/Comments: H & P medical managment Do you want consulting provider notified?: Yes Primary care physician: Luis F Chaudhry - Discharge Diagnosis(es) (1) Major depressive disorder Current Visit: Yes Status: Acute Priority: High (2) Alcohol use disorder Current Visit: Yes Status: Acute Priority: Medium (3) Nicotine dependence Current Visit: Yes Status: Acute Priority: Low Hospital Course: Admission HPI: Admission nose complete by group underwriter "Patient is a 54-year-old female who is currently coming from [facility] where she was been residing for 1 month, has no kids is and has no income. Patient presented to the hospital yesterday and was brought in by her sister who is her legal guardian on a petition. Petition stated that patient had been acting agitated and throwing things and also described other bizarre and disorganized behavior at home. Petition also stated that patient had not been caring for herself and has been losing weight. Patient was admitted to the mental health unit for further evaluation and treatment. Patient was irritable and aggravated with group underwriter during conversation. She appeared to be disheveled in appearance have poor hygiene and grooming was thin/frail. She had ungroomed hair. She minimized her symptoms and claims that "my sister put me in here and I have no idea why". She rambled and was fairly irritable throughout the conversation. She was also somatically preoccupied and asked for a cigarette and ibuprofen. She was endorsing poor sleep claiming she was sleeping approximately 2-3 hours a night. She states that she has been having a "rough year" and claims that her parents both in May. She states that her sisters think "I'm crazy and when a put me away". She claims that her mood has been depressed and aggravated and also denied any anxiety at this time. She claims that she did not do anything wrong to be in the hospital and states that "I was only turning on and off the light and my sister lied to me to get me here". She claims her appetite has been fair. Patient denies any suicidal or homicidal ideations intent or plan. At this time patient denies any auditory or visual hallucinations. Patient denies any flight of ideas racing thoughts and increased in goal directed behavior. Patient admits to using cigarettes daily. She claims that she has a long history of alcohol use and used to drink vodka heavily. She states that she quit for 7 months recently however relapsed back in May for a few months due to her parents dying and then states that she is now sober since August 29 weekend." Hospital course: Upon admission to the unit patient was initially brought in on a petition and certificate and a second certificate was completed and filed with the courts. Patient ended up signing a deferral on 11/17/2019 and agreeable to treatment. Patient was initially irritable and depressed however directable and agreeable to commence treatment after initially refusing treatment. Patient got along well with other patients on the unit and followed unit protocol. Patient was compliant with the medications and denied any side effects throughout hospital course. Patient was started on Zyprexa 2.5 mg daily at bedtime for mood stabilization/insomnia. Patient was also started on Zoloft 50 mg daily for mood/anxiety. Patient spoke of her stressors and engaged in therapy both group and individual. Patient was also seen by medical team for history and physical exam. Patient had an infected toe which she was complaining about ongoing pain from. Patient had an x-ray completed on admission in the ER which showed a possible tiny air bubble however no fracture or no osteomyelitis was seen. Patient's primary care doctor started patient on antibiotic by mouth and also recommended body taping the fourth and fifth toe which was done on the unit and patient claims that the pain had improved. Also a arterial Doppler was completed on 11/18/2019 and will await the reading on the study prior to patient's discharge and will be communicating this to patient's PCP Dr. Zaragoza for continued follow up and treatment. Throughout the course of the hospitalization patient gradually improved with regards to mood, irritability, anxiety, sleep and became future oriented with improved insight and judgment. On the day of discharge patient denied any suicidal or homicidal ideations intent or plan denied any auditory or visual hallucinations. Patient endorsed wanting to live her health and her future. The patient denied any access to guns or weapons. Patient denied any paranoia and did not endorse any delusions. Patient does have a significant history of substance abuse and was counseled on abstaining from all substances including alcohol and marijuana. Patient was also counseled on the medications and need for regular compliance and was encouraged to follow-up with their outpatient appointment for mental health and also for primary care. Prior to discharge social media marketing specialist and group underwriter spoke with patient's guardian Val Spangler over the phone and answered questions and addressed concerns that she had about patient's care and treatment and also diagnosis. Patient does not have an income at this time therefore making placement more difficult for patient's guardian. Patient's guardian will be filing for Social Security for patient at this time upon discharge. Patient will be picked up by guardian and discharged to nursing home at this time with [facility] and guardian attempting to find patient a more permanent placement. Mental status exam: General Appearance: Patient appears to be thin, tall stated age is alert, pleasant, and cooperative. Patient is in no acute distress and has fair hygiene and grooming Behavior: Patient is calmly seated without any agitated behavior. Speech: Patient's speech is fluent and nonpressured. Mood/Affect: Patient reports their mood is "good", affect is congruent Suicidality/Homicidality: Patient denies having any suicidal or homicidal ideation intent or plan. Perceptions: Patient denies any auditory or visual hallucinations. Though content/process: There is no evidence of any delusional thought content and thought process is linear and goal-directed. Memory and concentration: AOX3, grossly intact for the purposes of this session. Can spell "WORLD" backwards correctly. Judgment and insight: Improved with guarded prognosis Impression: Major depressive disorder Alcohol use disorder Nicotine dependence Plan: -Continue with discharge today as patient has improved and stabilized psychiatrically and is not currently an imminent threat to herself and/or others. Patient will remain at chronically elevated risk for harm to self and/or others due to her superficial/impulsive tendencies and substance abuse. -Continue medications: Continue with Zoloft 50 mg daily for mood/anxiety, Zyprexa 2.5 mg nightly for mood stabilization/insomnia. - An arterial Doppler was completed on 11/18/2019 and will await the reading on the study prior to patient's discharge and will be communicating this to patient's PCP Dr. Zaragoza for continued follow up and treatment. Continue with body taping and antibiotic prescribed for 5 more days for infection. -Patient was counseled on the need for medication compliance and appropriate follow-up at mental health and also primary care for medical issues. Patient verbalized understanding and agreed. -Social work to arrange for and conduct family meeting to ensure safety upon discharge and answer any questions/concerns. See above for further details regarding phone conversation with patient's guardian by group underwriter. Social work also to arrange for patients follow up appointments with [facility] for psychiatric care along with follow up with primary care provider. -[facility] and patient's guardian will be applying for patient Social Security and also looking for permanent placement. At this time patient's guardian will be picking patient up from Hospital as she will be discharged to the nursing home today. -Patient counseled on abstaining from recreational drugs and marijuana and alcohol. Was informed/educated on the adverse effects on their physical and mental health. Patient verbally agreed and understood. -Patient was instructed to return to the hospital or seek immediate medical care if their psychiatric or medical symptoms do worsen or reoccur. Allergies Allergy/AdvReac Type Severity Reaction Status Date / Time latex Allergy Rash/Hives Verified 11/13/19 16:47 Penicillins Allergy Anaphylaxis Verified 11/13/19 16:47 spider venom Allergy Anaphylaxis Verified 11/13/19 16:47 Sulfa (Sulfonamide Allergy Anaphylaxis Verified 11/13/19 16:47 Antibiotics) Laboratory Results WBC 8.8 k/uL (3.8-10.6) 11/14/19 12:46 RBC 4.36 m/uL (3.80-5.40) 11/14/19 12:46 Hgb 12.9 gm/dL (11.4-16.0) 11/14/19 12:46 Hct 41.7 % (34.0-46.0) 11/14/19 12:46 MCV 95.6 fL (80.0-100.0) 11/14/19 12:46 MCH 29.5 pg (25.0-35.0) 11/14/19 12:46 MCHC 30.9 g/dL (31.0-37.0) L 11/14/19 12:46 RDW 13.4 % (11.5-15.5) 11/14/19 12:46 Plt Count 307 k/uL (150-450) 11/14/19 12:46 Neutrophils % 72 % 11/14/19 12:46 Lymphocytes % 20 % 11/14/19 12:46 Monocytes % 4 % 11/14/19 12:46 Eosinophils % 1 % 11/14/19 12:46 Basophils % 1 % 11/14/19 12:46 Neutrophils # 6.3 k/uL (1.3-7.7) 11/14/19 12:46 Lymphocytes # 1.8 k/uL (1.0-4.8) 11/14/19 12:46 Monocytes # 0.4 k/uL (0-1.0) 11/14/19 12:46 Eosinophils # 0.1 k/uL (0-0.7) 11/14/19 12:46 Basophils # 0.1 k/uL (0-0.2) 11/14/19 12:46 Sodium 139 mmol/L (137-145) 11/14/19 12:46 Potassium 4.6 mmol/L (3.5-5.1) 11/14/19 12:46 Chloride 104 mmol/L (98-107) 11/14/19 12:46 Carbon Dioxide 30 mmol/L (22-30) 11/14/19 12:46 Anion Gap 5 mmol/L 11/14/19 12:46 BUN 15 mg/dL (7-17) 11/14/19 12:46 Creatinine 0.71 mg/dL (0.52-1.04) 11/14/19 12:46 Est GFR (CKD-EPI)AfAm >90 (>60 ml/min/1.73 sqM) 11/14/19 12:46 Est GFR (CKD-EPI)NonAf >90 (>60 ml/min/1.73 sqM) 11/14/19 12:46 Glucose 155 mg/dL (74-99) H 11/14/19 12:[address] Glu mg/dL 131 11/14/19 12:46 Hemoglobin A1c 6.2 % (4.0-6.0) H 11/14/19 12:46 Calcium 9.4 mg/dL (8.4-10.2) 11/14/19 12:46 Total Bilirubin 0.4 mg/dL (0.2-1.3) 11/14/19 12:46 AST 24 U/L (14-36) 11/14/19 12:46 ALT 14 U/L (4-34) 11/14/19 12:46 Alkaline Phosphatase 116 U/L (38-126) 11/14/19 12:46 Total Protein 7.3 g/dL (6.3-8.2) 11/14/19 12:46 Albumin 4.0 g/dL (3.5-5.0) 11/14/19 12:46 Urine HCG, Qual Not Detected (Not Detectd) 11/13/19 13:41 Urine Opiates Screen Not Detected (NotDetected) 11/13/19 13:41 Ur Oxycodone Screen Not Detected (NotDetected) 11/13/19 13:41 Urine Methadone Screen Not Detected (NotDetected) 11/13/19 13:41 Ur Propoxyphene Screen Not Detected (NotDetected) 11/13/19 13:41 Ur Barbiturates Screen Not Detected (NotDetected) 11/13/19 13:41 U Tricyclic Antidepress Not Detected (NotDetected) 11/13/19 13:41 Ur Phencyclidine Scrn Not Detected (NotDetected) 11/13/19 13:41 Ur Amphetamines Screen Not Detected (NotDetected) 11/13/19 13:41 U Methamphetamines Scrn Not Detected (NotDetected) 11/13/19 13:41 U Benzodiazepines Scrn Not Detected (NotDetected) 11/13/19 13:41 Urine Cocaine Screen Not Detected (NotDetected) 11/13/19 13:41 U Marijuana (THC) Screen Not Detected (NotDetected) 11/13/19 13:41 Vital Signs Temp 97.9 F 11/19/19 07:52 Pulse 94 11/19/19 07:46 Resp 16 11/19/19 07:52 BP 141/95 11/19/19 07:46 Pulse Ox 98 11/19/19 07:52 Patient Condition at Discharge: Stable Plan - Discharge Summary Discharge Rx Participant: No New Discharge Prescriptions: New Folic Acid 1 mg PO DAILY 30 Days tab Nicotine 21Mg/24Hr Patch [Habitrol] 1 patch TRANSDERM DAILY 14 Days patch Ibuprofen [Motrin] 600 mg PO Q8H PRN 30 Days tab PRN Reason: Moderate To Severe Pain Multivitamins, Thera [Multivitamin (formulary)] 1 each PO DAILY 30 Days tab Acetaminophen Tab [Tylenol] 650 mg PO Q6HR PRN 30 Days tab PRN Reason: Pain/Discomfort Doxycycline [Vibramycin] 100 mg PO BID 5 Days cap Thiamine [Vitamin B-1] 100 mg PO DAILY 30 Days tab Sertraline [Zoloft] 50 mg PO DAILY 30 Days tab OLANZapine [ZyPREXA] 2.5 mg PO HS 30 Days tab Discontinued EPINEPHrine (Auto Inject) [Epipen] 0.3 mg IM ONCE PRN PRN Reason: Anaphylaxis Naproxen Sodium [Aleve] 220 mg PO BID PRN PRN Reason: Pain Multivitamins, Thera [Multivitamin (formulary)] 1 tab PO DAILY Doxycycline Hyclate 100 mg PO BID Discharge Medication List Acetaminophen Tab [Tylenol] 650 mg PO Q6HR PRN 30 Days tab 11/19/19 [Rx] Doxycycline [Vibramycin] 100 mg PO BID 5 Days cap 11/19/19 [Rx] Folic Acid 1 mg PO DAILY 30 Days tab 11/19/19 [Rx] Ibuprofen [Motrin] 600 mg PO Q8H PRN 30 Days tab 11/19/19 [Rx] Multivitamins, Thera [Multivitamin (formulary)] 1 each PO DAILY 30 Days tab 11/19/19 [Rx] Nicotine 21Mg/24Hr Patch [Habitrol] 1 patch TRANSDERM DAILY 14 Days patch 11/19/19 [Rx] OLANZapine [ZyPREXA] 2.5 mg PO HS 30 Days tab 11/19/19 [Rx] Sertraline [Zoloft] 50 mg PO DAILY 30 Days tab 11/19/19 [Rx] Thiamine [Vitamin B-1] 100 mg PO DAILY 30 Days tab 11/19/19 [Rx] Follow up Appointment(s)/Referral(s): [facility] [Outside] - 11/21/19 11:00 am (11-21-19 @ 11:00 with Jennifer face to face at [facility] office GUARDIAN MUST COME WELL!! ) Patient Instructions/Handouts: Depression (DC), Abuse of Alcohol (DC), Psychotic Disorder (DC) Activity/Diet/Wound Care/Special Instructions: Activity and diet as tolerated. Avoid the use of street drugs and alcohol. Take all medications as prescribed. When you are in need of refills on your medications please contact your medical provider and/or outpatient psychiatrist to have this done. Please go to scheduled outpatient appointment for aftercare treatment. If symptoms return or become worse, call the crisis line at and/or go to the nearest emergency room for evaluation. Discharge Disposition: OTHER INSTITUTION NOT DEFINED
--- NOTE | 2019-11-19 11:41 | P.ARTDOP ---
Arterial Doppler LOWER EXTREMITY ARTERIAL DOPPLER: DATE OF SERVICE: 11/18/2019 Reason for study: Injury to left fifth toe. Doppler waveforms: Multiphasic throughout on the right. Multiphasic to the left popliteal and atypical below. Pulse volume recording: []. Pressure gradients: Below the knee on the left. Ankle-brachial indices: Greater than 1 on the right and 0.65 on the left. Toe brachial indices: 0.19 on the right, 0.19 on the left Impression: The right side shows normal perfusion except at the toe level which is blunted with low toe pressures. The left side suggest moderate infrapopliteal disease with decreased toe pressures. Perfusion is probably adequate for healing. Clinical correlation recommended..
== END 2019-11-19 19:27 | disposition home or self-care (01) | DRG 881 ==
LOC: EC 12:56 → 3MHU 17:50
PROVIDERS: ADMIT Psychiatry & Neurology Psychiatry; ATTEND Psychiatry & Neurology Psychiatry
PROC: B44GZZZ Ultrasonography of Left Lower Extremity Arteries (ICD-10-PCS; principal; 2019-11-19)
DX: F32.9 Major depressive disorder, single episode, unspecified (principal); F10.10 Alcohol abuse, uncomplicated; G47.00 Insomnia, unspecified; F41.9 Anxiety disorder, unspecified; S90.122A Contusion of left lesser toe(s) without damage to nail, initial encounter; L03.032 Cellulitis of left toe; R45.87 Impulsiveness; M19.90 Unspecified osteoarthritis, unspecified site; M67.432 Ganglion, left wrist; Z79.899 Other long term (current) drug therapy; F17.210 Nicotine dependence, cigarettes, uncomplicated; Z71.51 Drug abuse counseling and surveillance of drug abuser; Z71.41 Alcohol abuse counseling and surveillance of alcoholic; Z88.0 Allergy status to penicillin; Z88.2 Allergy status to sulfonamides; Z91.038 Other insect allergy status; Z91.040 Latex allergy status; Z80.9 Family history of malignant neoplasm, unspecified; Z81.8 Family history of other mental and behavioral disorders
CPT/HCPCS: 80053; 80306; 81025; 82075; 83036; 85025; 93923; 99285

== ENCOUNTER → 2020-01-08 | Outpatient (CLI) | payer OTHER ==
[2020-01-08 11:35] LABS: HCT 36.7 % (34.0-46.0); Hypochromasia Slight; MCHC 32.6 g/dL (31.0-37.0); MCV 95.3 fL (80.0-100.0); Mean Platelet Volume 7.3; Platelet Count 463 k/uL (150-450); RBC 3.85 m/uL (3.80-5.40); RDW 14.5 % (11.5-15.5); WBC 6.9 k/uL (3.8-10.6)
[2020-01-08 11:36] LABS: African American GFR (CKD) >90 (>60 ml/min/1.73 sqM); Blood Urea Nitrogen 14 mg/dL (7-17); Non-African American GFR(CKD) >90 (>60 ml/min/1.73 sqM)
== END | disposition home or self-care (01) ==
LOC: LABPAT 10:00
PROVIDERS: ATTEND Internal Medicine Interventional Cardiology
DX: Z01.818 Encounter for other preprocedural examination (principal); I73.9 Peripheral vascular disease, unspecified
CPT/HCPCS: 82565; 84520; 85027

== ENCOUNTER → 2020-01-13 | Day surgery (SDC) | payer OTHER ==
[2020-01-09 10:09] VITALS: BMI 21.4
[~2020-01-13] MED LIST changes: +ALPRAZolam 0.25 MG TAB PO PRN; +ASPIRIN 325 MG TAB PO STA; -DEXAMETHASONE SOD PHOSPHATE 10 MG/ML 1 ML VIAL IV ONE; -HYDROmorphone 0.5 MG/0.5 ML SYRINGE IVP PRN; -LACTATED RINGERS 1,000 ML IV SCH; -MIDAZOLAM 2 MG/2 ML VIAL IV PRN; -ONDANSETRON 4 MG/2 ML VIAL IVP ONE; -Pre Op ABX Message 1 EACH MISC MISCELLANE ONE; -SCOPOLAMINE 1.5MG/72HR PATCH TRANSDERM ONE; +SODIUM CHLORIDE 0.9% 1,000 ML in EMPTY BAG 1 BAG IV ONE
== END ==
LOC: CATHCVL 07:01
PROVIDERS: ATTEND Internal Medicine Interventional Cardiology
DX: Z53.9 Procedure and treatment not carried out, unspecified reason (principal)

== ENCOUNTER → 2020-01-16 | Day surgery (SDC) | payer OTHER ==
[2020-01-14 12:00] VITALS: BMI 21.6
[~2020-01-16] MED LIST changes: +IOPAMIDOL-250 100ML BTL INTRAARTER ONE; +LIDOCAINE 1% INJ 10MG/ML (20 ML MDV) SQ ONE; +MIDAZOLAM 2 MG/2 ML VIAL IV ONE; +SODIUM CHLORIDE 0.9% 1,000 ML IV SCH; +ZOLPIDEM 5 MG TAB PO PRN; +fentaNYL (PF) 50 MCG/ML 2 ML AMP IV ONE
[2020-01-16 09:14] VITALS: RESP 18; TEMP 98.8
--- NOTE | 2020-01-16 11:06 | AN ---
ANGIOGRAPHY REPORT DATE OF SERVICE: 01/16/2020 PERFORMING PHYSICIAN: Marko Rincon MD. PROCEDURE PERFORMED: 1. An abdominal aortogram. 2. Bilateral lower extremities runoff. INDICATION: This is a 54-year-old female patient with history of smoking, was experiencing left lower extremities intermittent claudication. On examination, she did have diminished left popliteal pulse and diminished pedal pulses bilaterally. Because of that, an angiogram was advised. APPROACH: Right common femoral artery. COMPLICATION: None. LEVEL OF SEDATION: Moderate with sedation length of 12 minutes. PROCEDURE DESCRIPTION: After obtaining an informed consent the patient was brought to cardiac helper animal laboratory. The right common femoral artery was cannulated using micropuncture technique. The micropuncture wire passed easily, then I placed a 5-Swedish sheath in the right common femoral artery. An abdominal aortogram and bilateral lower extremities runoff were performed using 5- Swedish pigtail catheter which was initially placed at the level of the renal arteries, then it was pulled back into above the bifurcation of the aorta to right and left common iliac arteries. The procedure was completed without any complication. SELECTIVE PERIPHERAL ANGIOGRAM: 1. The aorta appeared to be angiographically normal. 2. Common iliac arteries both are angiographically normal. 3. Internal iliac arteries both are patent. 4. External iliac arteries both are angiographically normal. 5. Common femoral arteries both are angiographically normal. 6. Profunda both are patent. 7. SFA, the right SFA appeared to be angiographically normal. The left SFA distally has a lesion appeared to be a napkin ring about 60%-70%. 8. Popliteals appeared to be angiographically normal and below the knee on the right side there are 2 vessels with anterior tibial and peroneal. On the left side, the patient has occluded posterior occluded anterior tibial,.occluded peroneal and occluded posterior tibial artery. CONCLUSION: 1. Mild aortoiliac disease. 2. Intermediate to severe lesion involving the left SFA on short segment. 3. Severe fyctl-[id number] disease bilaterally. POSTPROCEDURE MANAGEMENT: The patient will be brought back to undergo either an IVUS or a gradient measurement of the lesion in the left SFA. MMODL / IJN: [id number] /
[2020-01-16 15:36] VITALS: BP 119/63; PULSE 58
--- NOTE | 2020-01-19 16:53 | IR ---
EXAMINATION TYPE: IR angio abdominal w runoff DATE OF EXAM: 01/16/2020 COMPARISON: NONE HISTORY: Left leg pain TECHNIQUE: Fluoroscopy. FINDINGS: Fluoroscopic guidance was provided during procedure performed by Dr. Rincon. A total of 0.8 minutes of fluoroscopic time was utilized during the procedure and 87 images were acquired. Please s ee operative report for additional details. IMPRESSION: As Above.
== END ==
LOC: CATHCVL 08:43
PROVIDERS: ATTEND Internal Medicine Interventional Cardiology
DX: I70.213 Atherosclerosis of native arteries of extremities with intermittent claudication, bilateral legs (principal); F17.210 Nicotine dependence, cigarettes, uncomplicated; Z79.1 Long term (current) use of non-steroidal anti-inflammatories (NSAID); Z79.899 Other long term (current) drug therapy; Z88.0 Allergy status to penicillin; Z91.040 Latex allergy status; Z88.2 Allergy status to sulfonamides
CPT/HCPCS: 36200; 75625; 75716; 81025; C1769 ×4; C1894; J2250; J2001; J3010; Q9966

== ENCOUNTER → 2020-02-03 | Outpatient (CLI) | payer OTHER ==
[2020-02-03 13:13] LABS: HCT 39.9 % (34.0-46.0); HGB 13.1 gm/dL (11.4-16.0); MCH 30.6 pg (25.0-35.0); MCHC 32.9 g/dL (31.0-37.0); Mean Platelet Volume 7.6; Platelet Count 351 k/uL (150-450); RBC 4.29 m/uL (3.80-5.40); RDW 14.5 % (11.5-15.5); WBC 12.7 k/uL (3.8-10.6)
[2020-02-03 19:59] LABS: African American GFR (CKD) 96.9 (60.0-200.0); Anion Gap 7.5 mmol/L (4.00-12.00); Carbon Dioxide 26.5 mmol/L (21.6-31.8); Non-African American GFR(CKD) 83.6 (60.0-200.0); Potassium 4.2 mmol/L (3.5-5.5)
== END | disposition home or self-care (01) ==
LOC: LABWHC1 11:52
PROVIDERS: ATTEND Internal Medicine Interventional Cardiology
DX: Z01.818 Encounter for other preprocedural examination (principal); I70.213 Atherosclerosis of native arteries of extremities with intermittent claudication, bilateral legs
CPT/HCPCS: 36415; 80051; 82565; 84520; 85027

== ENCOUNTER → 2020-03-05 | Outpatient (CLI) | payer OTHER ==
[2020-03-05 10:00] LABS: HGB 13.5 gm/dL (11.4-16.0); MCH 30.6 pg (25.0-35.0); MCHC 32.9 g/dL (31.0-37.0); Mean Platelet Volume 7.3; Platelet Count 347 k/uL (150-450); RBC 4.41 m/uL (3.80-5.40); RDW 14.9 % (11.5-15.5)
[2020-03-05 10:12] LABS: African American GFR (CKD) >90 (>60 ml/min/1.73 sqM); Anion Gap 3 mmol/L; Blood Urea Nitrogen 16 mg/dL (7-17); Carbon Dioxide 32 mmol/L (22-30); Chloride 106 mmol/L (98-107); Non-African American GFR(CKD) 88 (>60 ml/min/1.73 sqM); Sodium 141 mmol/L (137-145)
== END | disposition home or self-care (01) ==
LOC: LABPAT 08:57
PROVIDERS: ATTEND Internal Medicine Interventional Cardiology
DX: Z01.818 Encounter for other preprocedural examination (principal); I73.9 Peripheral vascular disease, unspecified
CPT/HCPCS: 36415; 80051; 82565; 84520; 85027

== ENCOUNTER 2020-03-10 08:10 | Day surgery (SDC) | payer OTHER ==
[2020-03-04 09:01] VITALS: BMI 19.2
[~2020-03-10 08:10] MED LIST changes: +ASPIRIN 325 MG TAB PO PRN; -ASPIRIN 325 MG TAB PO STA; -IOPAMIDOL-250 100ML BTL INTRAARTER ONE; -LIDOCAINE 1% INJ 10MG/ML (20 ML MDV) SQ ONE; -MIDAZOLAM 2 MG/2 ML VIAL IV ONE; -SODIUM CHLORIDE 0.9% 1,000 ML IV SCH; -ZOLPIDEM 5 MG TAB PO PRN; -fentaNYL (PF) 50 MCG/ML 2 ML AMP IV ONE
[2020-03-10] MEDS ORDERED: SODIUM CHLORIDE 0.9% 1,000 ML IV ONE (08:26)
[2020-03-10 08:44] LABS: Glucose,Whole Blood 82 mg/dL (75-99)
[2020-03-10] MEDS ORDERED: LIDOCAINE 1% INJ 10MG/ML (20 ML MDV) ONE (10:28)
[2020-03-10] MEDS ORDERED: fentaNYL (PF) 50 MCG/ML 2 ML AMP ONE (10:28)
[2020-03-10] MEDS ORDERED: HEPARIN SODIUM 1,000 UN/ML (10ML VL) ONE (10:37)
[2020-03-10] MEDS: MIDAZOLAM 2 MG/2 ML VIAL IVP ONE ×2 (10:47→11:37)
[2020-03-10] MEDS ORDERED: fentaNYL (PF) 50 MCG/ML 2 ML AMP IVP ONE (10:48)
[2020-03-10] MEDS ORDERED: LIDOCAINE 1% INJ 10MG/ML (20 ML MDV) SQ ONE (10:53)
[2020-03-10] MEDS ORDERED: HEPARIN SODIUM 1,000 UN/ML (10ML VL) IV ONE (11:00)
[2020-03-10] MEDS ORDERED: MIDAZOLAM 2 MG/2 ML VIAL IVP ONE ×2 (11:45→11:46)
[2020-03-10] MEDS ORDERED: HYDROmorphone 1 MG/ML 1 ML SYRINGE IVP ONE (12:02)
[2020-03-10] MEDS ORDERED: niCARdipine 25 MG/10 ML VIAL ONE (12:10)
[2020-03-10] MEDS ORDERED: NITROGLYCERIN 1000MCG/10ML SYRINGE INTRAARTER ONE (12:13)
[2020-03-10] MEDS ORDERED: IOPAMIDOL-250 100ML BTL INTRAARTER ONE ×2 (12:34→12:35)
[2020-03-10] MEDS ORDERED: SODIUM CHLORIDE 0.9% 1,000 ML IV SCH (12:45)
[2020-03-10 12:52] LABS: Glucose,Whole Blood 95 mg/dL (75-99)
--- NOTE | 2020-03-10 13:22 | AN ---
ANGIOGRAPHY REPORT PERCUTANEOUS PERIPHERAL INTERVENTION: DATE OF SERVICE: March 10, 2020. PERFORMING PHYSICIAN: Marko Rincon MD. PROCEDURE PERFORMED: 1. Successful balloon angioplasty of the left peroneal artery using 2.0 x 18 mm balloon with an excellent angiographic result and reduction of stenosis from 100% to 0%. 2. Intravascular ultrasound (IVUS) of the left SFA. 3. Gradient measurement across the left SFA. 4. Left lower extremity angiogram. 5. Right common femoral artery angiogram. INDICATION: This is a 54-year-old female patient who continues to have left lower extremities intermittent claudication and underwent an angiogram recently and that showed intermediate to severe lesion involving the left SFA by the Mario canal. She was brought today to undergo an IVUS of the left SFA and possible SPEECH PATHOLOGY ASSISTANT of the left SFA. APPROACH: Right common femoral artery. COMPLICATION: None. LEVEL OF SEDATION: Moderate with sedation length of 101 minutes. PROCEDURE DESCRIPTION: After obtaining an informed consent, the patient was brought to the cardiac soap slabber. The right common femoral artery was cannulated using micropuncture technique under ultrasound guidance, the micropuncture wire passed easily then I placed a 6-New Zealander sheath 70 cm. Anticoagulation was initiated using heparin and the patient was given a total of 5000 units of heparin IV. I did go up and over using an 0.035 stiff Glidewire with a backup support of 5-New Zealander RIM catheter. The 70 cm 6-New Zealander sheath was advanced over the wire and the catheter all the way to the proximal left SFA. Left lower extremity angiogram was performed and revealed severe [id number] disease with occluded anterior tibial on short segment proximally and occluded peroneal and occluded posterior tibial artery. Also the angiogram revealed intermediate to severe disease involving the left SFA distally. Attempting crossing chronic total occlusion of the left anterior tibial artery in antegrade technique was unsuccessful. I decided to go after the peroneal, which I was able to cross it using an 0.018 mena tip Glidewire with the backup support of 0.018 CXI catheter. Subsequently I did balloon angioplasty using 2.0 balloon. The following angiogram showed excellent angiographic results. After that I did an IVUS of the left SFA and that showed an area of stenosis of 65%. I documented gradient and that came in to be at 16 mmHg, which is below the threshold of 20 mmHg. I decided to stop at that point. I did exchange my long sheath into short sheath using 0.035 stiff Glidewire and by the end I did selective right common femoral artery angiogram. I did close the groin using the Perclose device. The procedure was completed without any complication. POSTPROCEDURE MANAGEMENT: 1. Dual anti-platelet therapy. 2. Risk factor modifications. 3. Follow up with the patient. GENOVEVA / XIMENA: [id number] /
[2020-03-10] MEDS ORDERED: SODIUM CHLORIDE 0.9% 1,000 ML in EMPTY BAG 1 BAG IV SCH (13:30)
[2020-03-10] MEDS ORDERED: CLOPIDOGREL 75 MG TAB ONE (13:30)
--- NOTE | 2020-03-10 13:49 | IR ---
EXAMINATION TYPE: IR angio lower extremity LT DATE OF EXAM: 03/10/2020 COMPARISON: NONE HISTORY: Fluoroscopy time. Fluoroscopy was provided to the referring clinician.
[2020-03-10 16:53] LABS: Basophils % (A) 1 %; Eosinophils # (A) 0.1 k/uL (0-0.7); Eosinophils % (A) 2 %; HCT 38.2 % (34.0-46.0); HGB 12.7 gm/dL (11.4-16.0); Lymphocytes # (A) 2.1 k/uL (1.0-4.8); Lymphocytes % (A) 34 %; MCH 30.8 pg (25.0-35.0); MCHC 33.2 g/dL (31.0-37.0); MCV 92.8 fL (80.0-100.0); Mean Platelet Volume 7.4; Monocytes # (A) 0.4 k/uL (0-1.0); Monocytes % (A) 7 %; Neutrophils # (A) 3.3 k/uL (1.3-7.7); Neutrophils % (A) 53 %; Platelet Count 305 k/uL (150-450); RBC 4.12 m/uL (3.80-5.40); RDW 15.3 % (11.5-15.5); WBC 6.2 k/uL (3.8-10.6)
[2020-03-10 17:03] LABS: African American GFR (CKD) >90 (>60 ml/min/1.73 sqM); Anion Gap 3 mmol/L; Blood Urea Nitrogen 11 mg/dL (7-17); Calcium 8.9 mg/dL (8.4-10.2); Carbon Dioxide 27 mmol/L (22-30); Chloride 112 mmol/L (98-107); Glucose 86 mg/dL (74-99); Non-African American GFR(CKD) >90 (>60 ml/min/1.73 sqM); Potassium 4.2 mmol/L (3.5-5.1); Sodium 142 mmol/L (137-145)
[2020-03-10 17:24] LABS: Glucose,Whole Blood 84 mg/dL (75-99)
[2020-03-10 20:49] LABS: Glucose,Whole Blood 121 mg/dL (75-99)
[2020-03-10] MEDS ORDERED: OLANZapine 2.5 MG TAB PO SCH (21:00)
[2020-03-10 21:15] VITALS: RESP 16
[2020-03-11 06:01] LABS: Glucose,Whole Blood 95 mg/dL (75-99)
[2020-03-11 08:14] LABS: African American GFR (CKD) >90 (>60 ml/min/1.73 sqM); Non-African American GFR(CKD) >90 (>60 ml/min/1.73 sqM)
[2020-03-11] MEDS ORDERED: FOLIC ACID 1 MG TAB PO SCH (09:00)
[2020-03-11] MEDS ORDERED: MULTIVITAMINS, THERA 1 EACH TAB PO SCH (09:00)
[2020-03-11] MEDS ORDERED: CLOPIDOGREL 75 MG TAB PO SCH (09:00)
[2020-03-11] MEDS ORDERED: ASPIRIN 81 MG PO SCH (09:00)
[2020-03-11] MEDS ORDERED: SERTRALINE 50 MG TAB PO SCH (09:00)
[2020-03-11] MEDS ORDERED: ATORVASTATIN 40 MG TAB PO SCH (09:00)
[2020-03-11 09:25] VITALS: BP 132/82; PULSE 84; TEMP 98.1
[2020-03-11] MEDS ORDERED: RX INFO: IV CONTRAST WAS GIVEN 1 EACH MISC MISCELLANE PRN (11:25)
[2020-03-11] MEDS ORDERED: SODIUM CHLORIDE 0.9% 1,000 ML IV SCH (11:30)
--- NOTE | 2020-03-11 13:03 | CC ---
CARDIAC CATHETERIZATION REPORT DATE OF SERVICE: March 11, 2020 PERFORMING PHYSICIAN: Marko Rincon MD. PROCEDURE PERFORMED: 1. Selective right and left coronary angiogram. 2. Left heart catheterization. INDICATION: This is a 54-year-old female patient who was admitted to the hospital with chest discomfort and continues to have ongoing chest discomfort. Because of that, a heart catheterization was advised. APPROACH: Right common femoral artery. COMPLICATION: None. LEVEL OF SEDATION: Moderate with sedation length of 11 minutes. PROCEDURE DESCRIPTION: After obtaining an informed consent, the patient was brought to cardiac solar lab technician. The right common femoral artery was cannulated using micropuncture technique and a micropuncture wire passed easily then I placed a 6-Rwandan sheath at the right groin. Selective right and left coronary angiogram performed using JR4 and JL4 catheters. Left heart catheterization was performed using the JR4 catheter which crossed the aortic valve then I did pullback across the valve. The procedure was completed without any complication. SELECTIVE CORONARY ANGIOGRAM: 1. The right coronary artery is a large caliber vessel. It is a dominant vessel and is a tortuous vessel proximally. It is angiographically normal otherwise. 2. The left main is angiographically normal. It bifurcates into LCX and LAD. 3. The LCX is a large caliber vessel. It is a nondominant vessel. It is angiographically normal. It gives rise into a very tortuous OM which appeared to be angiographically normal. 4. The ramus intermedius is a moderate caliber vessel and appeared to be angiographically normal as well. 5. The LAD: The proximal LAD has mild disease only. It gives rise into a large diagonal branch which appeared to be angiographically normal. The LAD in the mid and distal portion is angiographically normal and becomes very tortuous as well. CONCLUSION: 1. Tortuous right and left coronary systems. 2. Overall mild nonobstructive coronary artery disease. 3. Normal LVEDP. POSTPROCEDURE MANAGEMENT: Medical treatment. MMODL / IJN: [id number] /
--- NOTE | 2020-03-11 13:24 | DS ---
DISCHARGE SUMMARY ADMISSION DATE: March 10, 2020. DISCHARGE DATE: March 11, 2020. BRIEF HISTORY: This is a 54-year-old female patient who underwent yesterday successful crossing chronic total occlusion of the left peroneal artery with an excellent angiographic results and without any complication. The patient was seen this morning. The right groin is soft and nontender and without any bruises. The patient is going to be discharged home. MMODL / IJN: [id number] /
--- NOTE | 2020-03-15 08:43 | CDI ---
Outpatient Documentation Clarification Form Date: 03/15/20 CDS.Supervisor Rod Placing Name: Lizzie Eaton Phone: If any questions call Tapan Herr [phone] Patient Name: Dayana Plata Admit Date: 03/10/20 Discharge Date: 03/11/20 ATTENTION: The [facility] Coding Staff appreciate your assistance in clarifying documentation. Please respond to the clarification below the line and electronically sign. The [facility] Coding Staff will review the response and follow-up if needed. Please note: Queries are made part of the [facility] record. If you have any questions, please contact the Coding Manger. Dear Dr. Rincon, Please provide clarification as to the cause of the occlusive PAD. PAD/PVD is considered unspecified. Greatest specificity is required for medical necessity support. Is underlying cause of the Occlusive PAD one of the following: Arteriosclerotic disease of the arteries Arteritis Necrotic Due to embolism/thrombosis Other - please specify below Thank you for your kind consideration. Ateriosclerotic disease of the arteries MTDD
== END 2020-03-11 11:55 | disposition home or self-care (01) ==
LOC: CATHCVL 08:10 → 3SCARD 12:32 → CATHCVL 03-11 11:55
PROVIDERS: ATTEND Internal Medicine Interventional Cardiology
DX: I25.10 Atherosclerotic heart disease of native coronary artery without angina pectoris (principal); I77.1 Stricture of artery; I73.9 Peripheral vascular disease, unspecified; E78.5 Hyperlipidemia, unspecified; F17.210 Nicotine dependence, cigarettes, uncomplicated; Z79.82 Long term (current) use of aspirin; Z79.890 Hormone replacement therapy; Z79.899 Other long term (current) drug therapy; Z88.0 Allergy status to penicillin; Z88.2 Allergy status to sulfonamides; Z91.040 Latex allergy status
CPT/HCPCS: 37228; 37252; 37224; 85347; 80048; 82565; 85025; 81025; C1894 ×2; C1769 ×6; C1725; C1887; C1753; C1760; J2250; J2001; J3010; J1644; J1170; Q9966

== ENCOUNTER → 2021-05-09 | Outpatient (CLI) | payer OTHER ==
[2021-05-10 01:16] LABS: HCT 39.1 % (37.2-46.3); HGB 12.3 g/dL (12.0-15.0); MCH 30.1 pg (27.0-32.0); MCHC 31.5 g/dL (32.0-37.0); MCV 95.6 fL (80.0-97.0); Mean Platelet Volume 10.4 fL (9.5-12.2); NRBC Per 100 WBC 0 /100 WBCS (0.0-0.0); Platelet Count 342 X 10*3/uL (140-440); RBC 4.09 X 10*6/uL (4.10-5.20); RDW 13.8 % (11.5-14.5); WBC 6.96 X 10*3/uL (4.50-10.00)
[2021-05-10 01:24] LABS: Anion Gap 12.1 mmol/L (10.00-18.00); Blood Urea Nitrogen 12.6 mg/dL (9.0-27.0); Carbon Dioxide 25.9 mmol/L (20.0-27.5); Non-African American GFR(CKD) 97.5 (60.0-200.0)
== END | disposition home or self-care (01) ==
LOC: LABPAT 14:02
PROVIDERS: ATTEND Internal Medicine Interventional Cardiology
DX: Z01.812 Encounter for preprocedural laboratory examination (principal); I70.213 Atherosclerosis of native arteries of extremities with intermittent claudication, bilateral legs
CPT/HCPCS: 80051; 82565; 84520; 85027

== ENCOUNTER → 2021-05-13 | Day surgery (SDC) | payer OTHER ==
[2021-05-10 11:13] VITALS: BMI 21.4
[~2021-05-13] MED LIST changes: +HEPARIN SODIUM 1,000 UN/ML (10ML VL) ONE; +IOPAMIDOL-250 100ML BTL INTRAARTER ONE; +LIDOCAINE 1% INJ 10MG/ML (20 ML MDV) ONE; +LIDOCAINE 1% INJ 10MG/ML (20 ML MDV) SQ ONE; +MIDAZOLAM 2 MG/2 ML VIAL IV ONE; +NALOXONE 0.4 MG/ML 1 ML VIAL IVP PRN; +SODIUM CHLORIDE 0.9% 1,000 ML in EMPTY BAG 1 BAG IV SCH; +fentaNYL (PF) 50 MCG/ML 2 ML AMP ONE
[2021-05-13 08:54] LABS: Glucose,Whole Blood 84 mg/dL (75-99)
[2021-05-13 08:58] VITALS: TEMP 97.6
--- NOTE | 2021-05-13 11:09 | P.PCN ---
Date of Procedure: 05/13/21 Operative Findings: AN ABDOMINAL AORTOGRAM AND BILATERAL LOWER EXTREMITIES RUNOFF PERFORMING PHYSICIAN: Marko Rincon MD PROCEDURE PERFORMED: 1. An abdominal aortogram 2. Bilateral lower extremities runoff 3. Ultrasound-guided access of the right common femoral artery INDICATION: Left lower extremities intermittent claudication COMPLICATION: None LEVEL OF SEDATION: Moderate was sedation length of 12 minutes APPROACH: Right common femoral artery PROCEDURE DESCRIPTION: After obtaining informed consent and explaining the procedure benefits, risks, and complications, the patient was brought to the cardiac slab stripper. The right groin was prepped and draped in sterile fashion. The right common femoral artery was cannulated using micropuncture technique, under ultrasound guidance. A micropuncture wire was advanced, and the micropuncture sheath was advanced over the wire, then the micropuncture sheath was exchanged over an 0.35 wire into a 5-Eritrean sheath dilator assembly then the wire and dilator were removed and sheath was flushed. We did an abdominal aortogram and bilateral lower extremities runoff using 5- Eritrean pigtail catheter using a power injection. The catheter was initially placed at the level of the renal arteries, and it was pulled into above the bifurcation of the aorta into right and left common iliac arteries. The procedure was completed and there was no complications. SELECTIVE PERIPHERAL ANGIOGRAM: The abdominal aorta: Is angiographically normal The common iliac arteries: The right and left common iliac arteries are normal The external iliac arteries: The right and left external iliac arteries are normal The internal iliac arteries: The right and left internal iliac arteries are patent The common femoral arteries: Both common femoral arteries appeared to be angiographically normal Superficial femoral arteries: The right SFA has mild disease only. The left SFA distally by the Mario canal has a lesion appeared to be hazy and with questionable napkin ring and the lesion appeared to be in the range of 60-70%. Popliteal arteries: Both are angiographically normal Below the knees: The arteries below the knee bilaterally were not well opacified. CONCLUSION: Intermediate to severe lesion involving the distal right SFA POSTPROCEDURE MANAGEMENT: Further investigation to assess the severity of the lesion by either gradient measurement or intravascular ultrasound
--- NOTE | 2021-05-13 11:30 | IR ---
EXAMINATION TYPE: IR angio abdominal w runoff DATE OF EXAM: 05/13/2021 COMPARISON: NONE HISTORY: Fluoroscopy time. Fluoroscopy was provided to the referring clinician.
[2021-05-13 14:55] VITALS: BP 114/63; PULSE 60; RESP 16
== END ==
LOC: CATHCVL 08:24
PROVIDERS: ATTEND Internal Medicine Interventional Cardiology
DX: E11.51 Type 2 diabetes mellitus with diabetic peripheral angiopathy without gangrene (principal); I70.211 Atherosclerosis of native arteries of extremities with intermittent claudication, right leg; I25.10 Atherosclerotic heart disease of native coronary artery without angina pectoris; F17.210 Nicotine dependence, cigarettes, uncomplicated; E78.5 Hyperlipidemia, unspecified; Z98.62 Peripheral vascular angioplasty status; Z20.822 Contact with and (suspected) exposure to COVID-19; Z79.899 Other long term (current) drug therapy; Z79.82 Long term (current) use of aspirin; Z79.84 Long term (current) use of oral hypoglycemic drugs; Z79.02 Long term (current) use of antithrombotics/antiplatelets; Z88.0 Allergy status to penicillin; Z91.040 Latex allergy status; Z88.2 Allergy status to sulfonamides
CPT/HCPCS: 36200; 75625; 75716; 76937; 81025; 87635; C1769 ×4; C1894; J2250; J2001; Q9966

== ENCOUNTER → 2022-01-06 | Outpatient (CLI) | payer OTHER ==
--- NOTE | 2022-01-06 14:33 | CTL ---
EXAMINATION TYPE: CT Low Dose Lung DATE OF EXAM ORDERED: 01/06/2022 HISTORY: Personal history of smoking. Lung cancer screening CT DLP: 71.[address] CTDI: 1.9 mGy Automated exposure control for dose reduction was used. SCREENING VISIT: Initial COMPARISON: None TECHNIQUE: Low dose computed tomography scan was performed through the chest at 1 mm thick sections a nd reconstructed images in the coronal plane at [address] DIAGNOSTIC QUALITY: Satisfactory FINDINGS: LUNG NODULES: None. LUNGS: COPD: Severity: Mild Fibrosis: Severity: None Lymph nodes: None Other findings: None RIGHT PLEURAL SPACE: Effusion: None Calcification: None Thickening: None Pneumothorax: None LEFT PLEURAL SPACE: Effusion: None Calcification: None Thickening: None Pneumothorax: None HEART: Heart Size: Normal Coronary calcification: Minimal Pericardial effusion: None OTHER FINDINGS: Upper abdomen: None Bony thorax: None Supraclavicular region: None Other: Ascending thoracic aorta at the level the main pulmonary artery measures 3.4 cm. The main pul monary artery at the bifurcation measures 3.1 cm. IMPRESSION: 1. No suspicious findings to suggest primary or metastatic neoplasm. FOLLOW UP CT CHEST RECOMMENDATION: Low-dose CT chest [address] LUNG RAD: 1
== END | disposition home or self-care (01) ==
LOC: RADCTMAIN 13:26
PROVIDERS: ATTEND Family Medicine
DX: Z12.2 Encounter for screening for malignant neoplasm of respiratory organs (principal); Z87.891 Personal history of nicotine dependence
CPT/HCPCS: 71271

== ENCOUNTER → 2022-06-01 | Outpatient (CLI) | payer OTHER ==
--- NOTE | 2022-06-01 14:31 | XR ---
EXAMINATION TYPE: XR foot complete LT DATE OF EXAM: 06/01/2022 CLINICAL HISTORY: pain TECHNIQUE: Frontal, lateral and oblique images of the left foot are obtained. COMPARISON: None. FINDINGS: There is no acute fracture/dislocation evident. The joint spaces appear within normal aldana its. The overlying soft tissue appears unremarkable. IMPRESSION: There is no acute fracture or dislocation. ICD 10 NO FRACTURE, INITIAL EVALUATION
== END | disposition home or self-care (01) ==
LOC: RADXRMAIN 14:03
PROVIDERS: ATTEND Family Medicine
DX: M79.672 Pain in left foot (principal)

== ENCOUNTER → 2022-06-01 | Outpatient (CLI) | payer OTHER ==
--- NOTE | 2022-06-02 07:52 | MM ---
Reason for Exam: Screening (asymptomatic). Last mammogram was performed 3 year(s) and 10 month(s) ago. Patient History: Menarche at age 14. Patient has no children. Postmenopausal. Patient used Hormonal Contraceptives for 30 years. Risk Values: Merlene 5 year model risk: 1.2%. NCI Lifetime model risk: 8.1%. Prior Study Comparison: 08/05/2018 Bilateral MG screening mammo w CAD - 2, Freya Ring. Tissue Density: There are scattered fibroglandular densities. Findings: Analyzed By CAD. There is no suspicious group of microcalcifications or new suspicious mass in either breast. Overall Assessment: Negative, BI-RAD 1 Management: Screening Mammogram of both breasts in 1 year. A clinical breast exam by your physician is recommended on an annual basis and results should be correlated with mammographic findings. Electronically signed and approved by: Rik Eldridge M.D.
== END | disposition home or self-care (01) ==
LOC: RADMAMWWP 13:29
PROVIDERS: ATTEND Family Medicine
DX: Z12.31 Encounter for screening mammogram for malignant neoplasm of breast (principal); Z80.3 Family history of malignant neoplasm of breast; Z78.0 Asymptomatic menopausal state
CPT/HCPCS: 77067

== ENCOUNTER 2023-01-21 14:00 | Emergency (ER) | payer OTHER ==
--- NOTE | 2023-01-21 14:22 | ED ---
General Adult HPI - General Source: patient, family, RN notes reviewed <Sasha Lee - Last Filed: 01/21/23 14:18> <Vitaly Waite - Last Filed: 01/21/23 19:21> <Brian Ward - Last Filed: 01/22/23 09:33> - General Stated complaint: mental health Time Seen by Provider: 01/21/23 14:18 - History of Present Illness Initial comments: patient is a 57-year-old female presenting to ER with chief complaint of mental health. Patient denies any fevers or chills.sister states that patient has been off her meds for about a week. Neighbors have stated that her behavior has been abnormal for about a week. (Sasha Lee) - Related Data Home Medications Medication Instructions Recorded Confirmed Sertraline [Zoloft] 50 mg PO DAILY 03/04/20 01/21/23 Atorvastatin [Lipitor] 80 mg PO HS 01/21/23 01/21/23 Fluticasone/Umeclidin/Vilanter 1 puff INHALATION RT-DAILY 01/21/23 01/21/23 [Trelegy Ellipta 100-62.5-25] metFORMIN HCL [Glucophage] 500 mg PO DAILY 01/21/23 01/21/23 Previous Rx's Medication Instructions Recorded Aspirin 81 mg PO DAILY #90 chew 03/11/20 Clopidogrel [Plavix] 75 mg PO DAILY #90 tab 03/11/20 Allergies Allergy/AdvReac Type Severity Reaction Status Date / Time latex Allergy Rash/Hives Verified 01/21/23 20:56 Penicillins Allergy Anaphylaxis Verified 01/21/23 20:56 spider venom Allergy Anaphylaxis Verified 01/21/23 20:56 Sulfa (Sulfonamide Allergy Anaphylaxis Verified 01/21/23 20:56 Antibiotics) Review of Systems ROS Other: All systems not noted in ROS Statement are negative. <Sasha Lee - Last Filed: 01/21/23 14:18> ROS Other: All systems not noted in ROS Statement are negative. <Vitaly Waite - Last Filed: 01/21/23 19:21> ROS Other: All systems not noted in ROS Statement are negative. <Brian Ward - Last Filed: 01/22/23 09:33> ROS Statement: Those systems with pertinent positive or pertinent negative responses have been documented in the HPI. Past Medical History Past Medical History: Diabetes Mellitus, Osteoarthritis (OA), Vascular Disorder Additional Past Medical History / Comment(s): GANGLION CYST LT WRIST, poor circulation, edema alphonse feet, History of Any Multi-Drug Resistant Organisms: None Reported Past Surgical History: Orthopedic Surgery Additional Past Surgical History / Comment(s): WISDOM TEETH, left wrist ganglion cyst Past Anesthesia/Blood Transfusion Reactions: No Reported Reaction Additional Psychological History / Comment(s): currently in [facility], psychosis - Past Family History Father Family Medical History: Cancer, Deep Vein Thrombosis (DVT) Mother Family Medical History: Cancer <Sasha Lee - Last Filed: 01/21/23 14:18> General Exam <Sasha Lee - Last Filed: 01/21/23 14:18> General appearance: alert, in no apparent distress Head exam: Present: atraumatic, normocephalic Eye exam: Present: normal appearance, PERRL ENT exam: Present: normal oropharynx Neck exam: Present: normal inspection Respiratory exam: Present: normal lung sounds bilaterally. Absent: respiratory distress, wheezes Cardiovascular Exam: Present: regular rate, normal rhythm GI/Abdominal exam: Present: soft. Absent: distended, tenderness, guarding Neurological exam: Present: alert, oriented X3, CN II-XII intact. Absent: motor sensory deficit Psychiatric exam: Absent: homicidal ideation, suicidal ideation Skin exam: Present: warm, dry, intact <Vitaly Wiate - Last Filed: 01/21/23 19:21> - General Exam Comments Initial Comments: Visual Physical Exam Vital signs reviewed General: Well-appearing, nontoxic, no acute distress. Head: Normocephalic, atraumatic Eyes: PERRLA, EOMI ENT: Airway patent Chest: Nonlabored breathing Skin: No visual rash, normal skin tone Neuro: Alert and oriented 3 Musculoskeletal: No gross abnormalities (Sasha Lee) Course <Vitaly Waite - Last Filed: 01/21/23 19:21> Vital Signs 01/21/23 01/21/23 01/22/23 14:27 21:55 09:12 Temperature 98.4 F 98.1 F Pulse Rate 134 H 67 76 Respiratory 18 14 16 Rate Blood Pressure 126/85 120/67 112/80 O2 Sat by Pulse 97 98 99 Oximetry - Reevaluation(s) Reevaluation #1: 01/21/23 17:41 Cleared for EPS (Vitaly Waite) Medical Decision Making <Sasha Lee - Last Filed: 01/21/23 14:18> - Lab Data Result diagrams: 01/21/23 14:50 01/21/23 14:50 <Vitaly Waite - Last Filed: 01/21/23 19:21> - Lab Data Result diagrams: 01/21/23 14:50 01/21/23 14:50 <Brian Ward - Last Filed: 01/22/23 09:33> - Medical Decision Making I performed the quick note portion of the exam. Electronically signed by Sasha Lee PA-C (Sasha Lee) Was pt. sent in by a medical professional or institution (MINE Holloway, DOWEL INSERTING MACHINE OPERATOR, urgent care, hospital, or long-term...) When possible be specific @ -No Did you speak to anyone other than the patient for history (EMS, parent, family, police, friend...)? What history was obtained from this source @ -No Did you review nursing and triage notes (agree or disagree)? Why? @ -I reviewed and agree with nursing and triage notes Were old charts reviewed (outside hosp., previous admission, EMS record, old EKG, old radiological studies, urgent care reports/EKG's, long-term records)? Report findings @ -No old charts were reviewed Differential Diagnosis (chest pain, altered mental status, abdominal pain women, abdominal pain men, vaginal bleeding, weakness, fever, dyspnea, syncope, headache, dizziness, GI bleed, back pain, seizure, CVA, palpatations, mental health, musculoskeletal)? @Differential Mental Health Depression, anxiety, bipolar, psychosis, schizophrenia, borderline personality, situational depression, adjustment disorder, behavioral disorder, brain tumor, malingering, substance abuse, encephalopathy, medication reaction, dementia, hypothyroidism, degenerative neurologic disorder, lupus.... This is not meant to be all-inclusive list EKG interpreted by me (3pts min.). @ -As above X-rays interpreted by me (1pt min.). @ -None done CT interpreted by me (1pt min.). @ -None done U/S interpreted by me (1pt. min.). @ -None done What testing was considered but not performed or refused? (CT, X-rays, U/S, lab s)? Why? @ -None What meds were considered but not given or refused? Why? @ -None Did you discuss the management of the patient with other professionals (professionals i.e. Dr., PA, DOWEL INSERTING MACHINE OPERATOR, lab, RT, psych nurse, social work professor, videotape sales representative, teacher, executive officer, briefcase sewer)? Give summary @Patient evaluated by EPS nurse, felt to be safe for discharge, will be picked up with family. Was smoking cessation discussed for >3mins.? @ -No Was critical care preformed (if so, how long)? @ -No Were there social determinants of health that impacted care today? How? (Homelessness, low income, unemployed, alcoholism, drug addiction, transportation, low edu. Level, literacy, decrease access to med. care, snf, rehab)? @ -No Was there de-escalation of care discussed even if they declined (Discuss DNR or withdrawal of care, Hospice)? DNR status @ -No What co-morbidities impacted this encounter? (DM, HTN, Smoking, COPD, CAD, Cancer, CVA, ARF, Chemo, Hep., AIDS, mental health diagnosis, sleep apnea, morbid obesity)? @ -None Was patient admitted / discharged? Hospital course, mention meds given and route, prescriptions, significant lab abnormalities, going to OR and other pertinent info. @ -57-year-old female not feeling well after missing several doses of her Xanax and was requesting mental health evaluation. She is not suicidal or homicidal. She is alert and oriented 3. She has no physical complaints. She received a workup including CBC, CMP, urinalysis. Testing is unremarkable emergency department. She is evaluated by EPS and felt to be safe for discharge. She will be picked up by her family members. She has follow up with [facility]. Undiagnosed new problem with uncertain prognosis? @ -No Drug Therapy requiring intensive monitoring for toxicity (Heparin, Nitro, Insulin, Cardizem)? @ -No Were any procedures done? @ -No Diagnosis/symptom? @ Depression Acute, or Chronic, or Acute on Chronic? @ -Acute Uncomplicated (without systemic symptoms) or Complicated (systemic symptoms)? @ -default Side effects of treatment? @ -No Exacerbation, Progression, or Severe Exacerbation? @ -No Poses a threat to life or bodily function? How? (Chest pain, [place], [place], pneumonia, PE, COPD, DKA, ARF, appy, cholecystitis, CVA, Diverticulitis, Homicidal, Suicidal, threat to staff... and all critical care pts) @ -No (Vitaly Waite) Patient reevaluated by myself, Dr. Ward. Patient was seen by mental health services with plan for discharge. Patient denies suicidal or homicidal thoughts. Patient is agreeable with plan. Guarding is present. They do request a single dose of metformin right now as well as Zoloft. Also requesting a dose of Zoloft for tomorrow. They will go to primary care physician today to further establish patient's medications. Patient has been off of her Zoloft f or around 2 weeks. (Brian Ward) - Lab Data Lab Results 01/21/23 01/21/23 01/21/23 Range/Units 14:50 14:50 16:07 WBC 8.2 (3.8-10.6) k/uL RBC 4.10 (3.80-5.40) m/uL Hgb 12.4 (11.4-16.0) gm/dL Hct 38.1 (34.0-46.0) % MCV 92.8 (80.0-100.0) fL MCH 30.2 (25.0-35.0) pg MCHC 32.6 (31.0-37.0) g/dL RDW 14.2 (11.5-15.5) % Plt Count 402 (150-450) k/uL MPV 8.4 Sodium 136 L (137-145) mmol/L Potassium 3.7 (3.5-5.1) mmol/L Chloride 102 (98-107) mmol/L Carbon Dioxide 24 (22-30) mmol/L Anion Gap 10 mmol/L BUN 13 (7-17) mg/dL Creatinine 0.74 (0.52-1.04) mg/dL Est GFR (CKD-EPI)AfAm >90 (>60 ml/min/1.73 sqM) Est GFR (CKD-EPI)NonAf >90 (>60 ml/min/1.73 sqM) Glucose 144 H (74-99) mg/dL Calcium 9.1 (8.4-10.2) mg/dL Total Bilirubin 0.6 (0.2-1.3) mg/dL AST 40 H (14-36) U/L ALT 30 (4-34) U/L Alkaline Phosphatase 89 (38-126) U/L Total Protein 6.6 (6.3-8.2) g/dL Albumin 3.5 (3.5-5.0) g/dL Urine Color Urine Appearance (Clear) Urine pH (5.0-8.0) Ur Specific [place] (1.001-1.035) Urine Protein (Negative) Urine Glucose (UA) (Negative) Urine Ketones (Negative) Urine Blood (Negative) Urine Nitrite (Negative) Urine Bilirubin (Negative) Urine Urobilinogen (<2.0) mg/dL Ur Leukocyte Esterase (Negative) Urine RBC (0-5) /hpf Urine WBC (0-5) /hpf Ur Squamous Epith Cells (0-4) /hpf Hyaline Casts (0-2) /lpf Urine Mucus (None) /hpf Urine Opiates Screen Not Detected (NotDetected) Ur Oxycodone Screen Not Detected (NotDetected) Urine Methadone Screen Not Detected (NotDetected) Ur Propoxyphene Screen Not Detected (NotDetected) Ur Barbiturates Screen Not Detected (NotDetected) U Tricyclic Antidepress Not Detected (NotDetected) Ur Phencyclidine Scrn Not Detected (NotDetected) Ur Amphetamines Screen Not Detected (NotDetected) U Methamphetamines Scrn Not Detected (NotDetected) U Benzodiazepines Scrn Not Detected (NotDetected) Urine Cocaine Screen Not Detected (NotDetected) U Marijuana (THC) Screen Detected H (NotDetected) 01/21/23 Range/Units 16:07 WBC (3.8-10.6) k/uL RBC (3.80-5.40) m/uL Hgb (11.4-16.0) gm/dL Hct (34.0-46.0) % MCV (80.0-100.0) fL MCH (25.0-35.0) pg MCHC (31.0-37.0) g/dL RDW (11.5-15.5) % Plt Count (150-450) k/uL MPV Sodium (137-145) mmol/L Potassium (3.5-5.1) mmol/L Chloride (98-107) mmol/L Carbon Dioxide (22-30) mmol/L Anion Gap mmol/L BUN (7-17) mg/dL Creatinine (0.52-1.04) mg/dL Est GFR (CKD-EPI)AfAm (>60 ml/min/1.73 sqM) Est GFR (CKD-EPI)NonAf (>60 ml/min/1.73 sqM) Glucose (74-99) mg/dL Calcium (8.4-10.2) mg/dL Total Bilirubin (0.2-1.3) mg/dL AST (14-36) U/L ALT (4-34) U/L Alkaline Phosphatase (38-126) U/L Total Protein (6.3-8.2) g/dL Albumin (3.5-5.0) g/dL Urine Color Yellow Urine Appearance Cloudy H (Clear) Urine pH 5.5 (5.0-8.0) Ur Specific [place] 1.015 (1.001-1.035) Urine Protein Trace H (Negative) Urine Glucose (UA) Negative (Negative) Urine Ketones Negative (Negative) Urine Blood Negative (Negative) Urine Nitrite Negative (Negative) Urine Bilirubin Negative (Negative) Urine Urobilinogen 2.0 (<2.0) mg/dL Ur Leukocyte Esterase Negative (Negative) Urine RBC 2 (0-5) /hpf Urine WBC 3 (0-5) /hpf Ur Squamous Epith Cells 7 H (0-4) /hpf Hyaline Casts 41 H (0-2) /lpf Urine Mucus Few H (None) /hpf Urine Opiates Screen (NotDetected) Ur Oxycodone Screen (NotDetected) Urine Methadone Screen (NotDetected) Ur Propoxyphene Screen (NotDetected) Ur Barbiturates Screen (NotDetected) U Tricyclic Antidepress (NotDetected) Ur Phencyclidine Scrn (NotDetected) Ur Amphetamines Screen (NotDetected) U Methamphetamines Scrn (NotDetected) U Benzodiazepines Scrn (NotDetected) Urine Cocaine Screen (NotDetected) U Marijuana (THC) Screen (NotDetected) Disposition <Sasha Lee - Last Filed: 01/21/23 14:18> Is patient prescribed a controlled substance at d/c from ED?: No Time of Disposition: 19:23 <Vitaly Waite - Last Filed: 01/21/23 19:21> <Brian Ward - Last Filed: 01/22/23 09:33> Clinical Impression: Major depressive disorder Disposition: HOME SELF-CARE Condition: Fair Instructions (If sedation given, give patient instructions): Depression (ED) Referrals: Luis F Chaudhry MD [Primary Care Provider] - 1-2 days
[2023-01-21 15:07] LABS: ALT 30 U/L (4-34); AST 40 U/L (14-36); African American GFR (CKD) >90 (>60 ml/min/1.73 sqM); Albumin 3.5 g/dL (3.5-5.0); Alkaline Phosphatase 89 U/L (38-126); Anion Gap 10 mmol/L; Blood Urea Nitrogen 13 mg/dL (7-17); Calcium 9.1 mg/dL (8.4-10.2); Carbon Dioxide 24 mmol/L (22-30); Chloride 102 mmol/L (98-107); Glucose 144 mg/dL (74-99); Non-African American GFR(CKD) >90 (>60 ml/min/1.73 sqM); Potassium 3.7 mmol/L (3.5-5.1); Sodium 136 mmol/L (137-145); Total Bilirubin 0.6 mg/dL (0.2-1.3); Total Protein 6.6 g/dL (6.3-8.2)
[2023-01-21 15:08] LABS: HCT 38.1 % (34.0-46.0); HGB 12.4 gm/dL (11.4-16.0); MCH 30.2 pg (25.0-35.0); MCHC 32.6 g/dL (31.0-37.0); MCV 92.8 fL (80.0-100.0); Mean Platelet Volume 8.4; Platelet Count 402 k/uL (150-450); RDW 14.2 % (11.5-15.5); WBC 8.2 k/uL (3.8-10.6)
[2023-01-21 16:34] LABS: Appearance,Urine Cloudy (Clear); Bilirubin,Urine Negative (Negative); Blood,Urine Negative (Negative); Color,Urine Yellow; Glucose,Urine (UA) Negative (Negative); Hyaline Casts,Urine 41 /lpf (0-2); Ketones,Urine Negative (Negative); Leukocyte Esterase,Urine Negative (Negative); Mucus,Urine Few /hpf; Nitrite,Urine Negative (Negative); PH, Urine 5.5 (5.0-8.0); Protein,Urine Trace (Negative); RBC,Urine 2 /hpf (0-5); Specific Gravity,Urine 1.015 (1.001-1.035); Squamous Epithelial Cell,Urine 7 /hpf (0-4); WBC,Urine 3 /hpf (0-5)
[2023-01-21 16:55] LABS: Amphetamine Screen,Urine Not Detected (NotDetected); Barbiturate Screen,Urine Not Detected (NotDetected); Benzodiazepines Screen,Urine Not Detected (NotDetected); Cocaine Screen,Urine Not Detected (NotDetected); Methadone Screen, Urine Not Detected (NotDetected); Opiate Screen,Urine Not Detected (NotDetected); Oxycodone Screen, Urine Not Detected (NotDetected); Phencyclidine Screen,Urine Not Detected (NotDetected); Tricyclic Antidepressant,Urine Not Detected (NotDetected); Urn Cannabinoid Scrn Detected (NotDetected)
[2023-01-21] MEDS ORDERED: SERTRALINE 50 MG TAB PO ONE (19:50)
[2023-01-22 09:27] VITALS: BP 112/80; PULSE 76; RESP 16; TEMP 98.1
[2023-01-22] MEDS ORDERED: SERTRALINE 50 MG TAB PO STA ×4 (09:32→09:47)
[2023-01-22] MEDS ORDERED: metFORMIN 500 MG TAB PO STA ×2 (09:32→09:47)
== END 2023-01-22 10:07 | disposition home or self-care (01) ==
LOC: EC 14:00 → EEVIPCON 14:00 → EC 01-22 10:07
DX: F32.9 Major depressive disorder, single episode, unspecified (principal); E11.9 Type 2 diabetes mellitus without complications; M19.90 Unspecified osteoarthritis, unspecified site; Z88.0 Allergy status to penicillin; Z91.040 Latex allergy status; Z88.2 Allergy status to sulfonamides; Z91.038 Other insect allergy status; Z79.84 Long term (current) use of oral hypoglycemic drugs; Z79.899 Other long term (current) drug therapy
CPT/HCPCS: 36415; 80053; 80306; 81001; 82075; 85027; 99283

== ENCOUNTER 2023-01-26 20:16 | Emergency (ER) | payer OTHER ==
[2023-01-26 22:11] VITALS: RESP 18; TEMP 98
--- NOTE | 2023-01-26 23:10 | ED ---
Extremity Problem HPI - General Source: patient Mode of arrival: ambulatory Limitations: no limitations <Zohaib Ho - Last Filed: 01/26/23 23:11> <Ray Flores - Last Filed: 01/27/23 01:25> - General Chief complaint: Extremity Problem,Nontraumatic Stated complaint: feet swelling-sent by urgentcare Time Seen by Provider: 01/26/23 23:09 - History of Present Illness Initial comments: 57-year-old female presenting to the ED with the chief complaint of feet swelling. Patient states since Sunday she's noticed that both of her feet and started to swell. States that she is having some pain of her feet with this as well. No chest pain or shortness of breath. (Zohaib Ho) Dictation was produced using [employer] dictation software. please excuse any grammatical, word or spelling errors. Chief Complaint: 57-year-old female sent in from urgent care for foot swelling History of Present Illness: Patient is a 57-year-old female she presents to the emergency Department with left foot swelling. Patient was seen at urgent care told to come to the emergency department. Patient complains of mild pain. She has a history of pain stripping in the left lower extremity. Denies any fever, chills or night sweats. She does feel like her left foot feels a little tight. She has no other complaints. Pain. No history of DVT. The ROS documented in this emergency department record has been reviewed and confirmed by me. Those systems with pertinent positive or negative responses have been documented in the HPI. All other systems are other negative and/or noncontributory. (Ray Flores) - Related Data Home Medications Medication Instructions Recorded Confirmed Sertraline [Zoloft] 50 mg PO DAILY 03/04/20 01/21/23 Atorvastatin [Lipitor] 80 mg PO HS 01/21/23 01/21/23 Fluticasone/Umeclidin/Vilanter 1 puff INHALATION RT-DAILY 01/21/23 01/21/23 [Trelegy Ellipta 100-62.5-25] metFORMIN HCL [Glucophage] 500 mg PO DAILY 01/21/23 01/21/23 Previous Rx's Medication Instructions Recorded Aspirin 81 mg PO DAILY #90 chew 03/11/20 Clopidogrel [Plavix] 75 mg PO DAILY #90 tab 03/11/20 Allergies Allergy/AdvReac Type Severity Reaction Status Date / Time latex Allergy Rash/Hives Verified 01/26/23 22:01 Penicillins Allergy Anaphylaxis Verified 01/26/23 22:01 spider venom Allergy Anaphylaxis Verified 01/26/23 22:01 Sulfa (Sulfonamide Allergy Anaphylaxis Verified 01/26/23 22:01 Antibiotics) Review of Systems ROS Other: All systems not noted in ROS Statement are negative. <Zohaib Ho - Last Filed: 01/26/23 23:11> ROS Other: All systems not noted in ROS Statement are negative. <Ray Flores - Last Filed: 01/27/23 01:25> ROS Statement: Those systems with pertinent positive or pertinent negative responses have been documented in the HPI. Past Medical History Past Medical History: Diabetes Mellitus, Osteoarthritis (OA), Vascular Disorder Additional Past Medical History / Comment(s): GANGLION CYST LT WRIST, poor circulation, edema alphonse feet, History of Any Multi-Drug Resistant Organisms: None Reported Past Surgical History: Orthopedic Surgery Additional Past Surgical History / Comment(s): WISDOM TEETH, left wrist ganglion cyst Past Anesthesia/Blood Transfusion Reactions: No Reported Reaction Past Psychological History: Anxiety, Depression Smoking Status: Current every day smoker Past Alcohol Use History: Abuse Past Drug Use History: None Reported - Past Family History Father Family Medical History: Cancer, Deep Vein Thrombosis (DVT) Mother Family Medical History: Cancer <Zohaib Ho - Last Filed: 01/26/23 23:11> General Exam Limitations: no limitations General appearance: alert, in no apparent distress Neck exam: Present: normal inspection Extremities exam: Present: normal inspection, other (ambulates without difficulty) Back exam: Present: normal inspection <Zohaib Ho - Last Filed: 01/26/23 23:11> <Ray Flores - Last Filed: 01/27/23 01:25> - General Exam Comments Initial Comments: PHYSICAL EXAM: General Impression: Alert and oriented x3, not in acute distress HEENT: Normocephalic atraumatic, extra-ocular movements intact, pupils equal and reactive to light bilaterally, mucous membranes moist. Cardiovascular: Heart regular rate and rhythm Chest: Able to complete full sentences, no retractions, no tachypnea Musculoskeletal: Pulses present and equal in all extremities, 1+ pitting edema to the left foot Motor: no focal deficits noted Neurological: CN II-XII grossly intact, no focal motor or sensory deficits noted Skin: Intact with no visualized rashes Psych: Normal affect and mood (Ray Flores) Course Vital Signs 01/26/23 21:59 Temperature 98 F Pulse Rate 84 Respiratory 18 Rate Blood Pressure 116/70 O2 Sat by Pulse 97 Oximetry Medical Decision Making <Ray Flores - Last Filed: 01/27/23 01:25> - Medical Decision Making Was pt. sent in by a medical professional or institution (, MINE, POST SPLITTER, urgent care, hospital, or fpc...) When possible be specific @ -No Did you speak to anyone other than the patient for history (EMS, parent, family, police, friend...)? What history was obtained from this source @ -No Did you review nursing and triage notes (agree or disagree)? Why? @ -I reviewed and agree with nursing and triage notes Were old charts reviewed (outside hosp., previous admission, EMS record, old E KG, old radiological studies, urgent care reports/EKG's, fpc records)? Report findings @ -No old charts were reviewed Differential Diagnosis (chest pain, altered mental status, abdominal pain women, abdominal pain men, vaginal bleeding, musculoskeletal, weakness, fever, dyspnea, syncope, headache, dizziness, GI bleed, back pain, seizure, CVA, palpatations, mental health)? @ -not applicable EKG interpreted by me (3pts min.). @ -None done X-rays interpreted by me (1pt min.). @ -None done CT interpreted by me (1pt min.). @ -None done U/S interpreted by me (1pt. min.). @ -None interpreted What testing was considered but not performed or refused? (CT, X-rays, U/S, labs)? Why? @ -None What meds were considered but not given or refused? Why? @ -None Did you discuss the management of the patient with other professionals (professionals i.e. , MINE, POST SPLITTER, lab, RT, psych nurse, manager social work, automation lead, teacher, water resources technical officer, mental health case manager)? Give summary @ -No Was smoking cessation discussed for >3mins.? @ -No Was critical care preformed (if so, how long)? @ -No Were there social determinants of health that impacted care today? How? (Homelessness, low income, unemployed, alcoholism, drug addiction, transportation, low edu. Level, literacy, decrease access to med. care, alf, rehab)? @ -No Was there de-escalation of care discussed even if they declined (Discuss DNR or withdrawal of care, Hospice)? DNR status @ -No What co-morbidities impacted this encounter? (DM, HTN, Smoking, COPD, CAD, Cancer, CVA, ARF, Chemo, Hep., AIDS, mental health diagnosis, sleep apnea, morbid obesity)? @ -None Was patient admitted / discharged? Hospital course, mention meds given and route, prescriptions, significant lab abnormalities, going to OR and other pertinent info. @ -57-year-old female presents to emergency department for pain and swelling of the left foot. She has history of pain stripping in the left lower extremity. Vital signs upon arrival are within acceptable limits. Patient has mild pitting edema to the left foot. Slightly dependent in nature. Told to elevate her foot. Otherwise she is amenable for discharge. Patient is a symptoms to suggest DVT. She did get an ultrasound ordered in triage for u evaluation of DVT. Ultrasounds negative. Undiagnosed new problem with uncertain prognosis? @ -No Drug Therapy requiring intensive monitoring for toxicity (Heparin, Nitro, Insulin, Cardizem)? @ -No Were any procedures done? @ -No Diagnosis/symptom? Acute, or Chronic, or Acute on Chronic? Uncomplicated (without systemic symptoms) or Complicated (systemic symptoms)? @ -Dependent edema of the left foot Side effects of treatment? @ -No Exacerbation, Progression, or Severe Exacerbation? @ -No Poses a threat to life or bodily function? How? (Chest pain, [place], [place], pneumonia, PE, COPD, DKA, ARF, appy, cholecystitis, CVA, Diverticulitis, Homicidal, Suicidal, threat to staff... and all critical care pts) @ -No (Ray Flores) Disposition <Zohaib Ho - Last Filed: 01/26/23 23:11> Is patient prescribed a controlled substance at d/c from ED?: No Time of Disposition: :25 <Ray Flores - Last Filed: 01/27/23 01:25> Clinical Impression: Edema of foot Disposition: HOME SELF-CARE Condition: Good Instructions (If sedation given, give patient instructions): Edema (ED) Referrals: Luis F Chaudhry MD [Primary Care Provider] - 1-2 days
--- NOTE | 2023-01-27 01:11 | US ---
EXAM: US Duplex Bilateral Lower Extremities Veins CLINICAL HISTORY: r/o dvt TECHNIQUE: Real-time duplex ultrasound scan of the bilateral lower extremity veins integrating B-mode two-dimensional vascular structure, Doppler spectral analysis, color flow Doppler imaging and compression. COMPARISON: No relevant prior studies available. FINDINGS: Right deep veins: Unremarkable. No DVT in the right common femoral, femoral, proximal deep femoral or popliteal veins. The veins demonstrate normal color flow, are normally compressible, with normal phasic flow and/or augmentation response. Right superficial veins: Unremarkable. No thrombus in the visualized right great saphenous vein. Left deep veins: Unremarkable. No DVT in the left common femoral, femoral, proximal deep femoral or popliteal veins. The veins demonstrate normal color flow, are normally compressible, with normal phasic flow and/or augmentation response. Left superficial veins: Unremarkable. No thrombus in the visualized left great saphenous vein. Soft tissues: No acute abnormality. No popliteal cyst. IMPRESSION: No evidence of deep venous thrombosis.
[2023-01-27 02:08] VITALS: BP 109/67; PULSE 64
== END 2023-01-27 01:50 | disposition home or self-care (01) ==
LOC: EC 20:16
DX: R22.42 Localized swelling, mass and lump, left lower limb (principal); E11.9 Type 2 diabetes mellitus without complications; M19.90 Unspecified osteoarthritis, unspecified site; F41.9 Anxiety disorder, unspecified; F32.A Depression, unspecified; F17.200 Nicotine dependence, unspecified, uncomplicated; Z88.0 Allergy status to penicillin; Z88.2 Allergy status to sulfonamides; Z91.040 Latex allergy status; Z91.038 Other insect allergy status; Z79.84 Long term (current) use of oral hypoglycemic drugs; Z79.899 Other long term (current) drug therapy
CPT/HCPCS: 93970; 99283

== ENCOUNTER → 2023-03-06 | Outpatient (CLI) | payer OTHER ==
--- NOTE | 2023-03-06 10:16 | US ---
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 History of: Smoker: Current Smoker Hypertension: No Diabetic: Yes Hyperlipidemia: No TIA/CVA: No Previous Vascular Surgery: Yes CAD: No VT: No Vascular Ulcers: No Claudication: No Gangrene: No Doppler Waveforms: Right: Left: Right Brachial Pressure: 135 Left Brachial Pressure: 139 Ankle-Brachial Indices: Right: 1.0 Left: 1.0 Toe Brachial Indices: Right: 0.2 Left: 0.2 IMPRESSION: 1. Mild narrowing bilateral posterior tibial arteries. This is approaching moderate on the left. 2. Severe stenosis distal digital arteries.
== END | disposition home or self-care (01) ==
LOC: RADUSWWP 08:29
PROVIDERS: ATTEND Family Medicine
DX: I70.203 Unspecified atherosclerosis of native arteries of extremities, bilateral legs (principal)
CPT/HCPCS: 93922

== ENCOUNTER → 2023-08-02 | Outpatient (CLI) | payer OTHER ==
[2023-08-02 19:49] LABS: HCT 36.7 % (37.2-46.3); HGB 11.8 g/dL (12.0-15.0); MCH 29.5 pg (27.0-32.0); MCHC 32.2 g/dL (32.0-37.0); MCV 91.8 FL (80.0-97.0); Mean Platelet Volume 9.9 FL (9.5-12.2); NRBC Per 100 WBC 0 X 10*3/uL (0.00-0.01); Platelet Count 400 X 10*3/uL (140-440); RDW 17.2 % (11.5-14.5); WBC 7.14 X 10*3/uL (4.50-10.00)
[2023-08-02 20:36] LABS: Carbon Dioxide 24.9 mmol/L (21.6-31.8); Chloride 101 mmol/L (96-109); Sodium 139 mmol/L (135-145)
== END | disposition home or self-care (01) ==
LOC: LABPAT 12:29
PROVIDERS: ATTEND Internal Medicine Interventional Cardiology
DX: Z01.812 Encounter for preprocedural laboratory examination (principal); I70.213 Atherosclerosis of native arteries of extremities with intermittent claudication, bilateral legs
CPT/HCPCS: 80051; 82565; 84520; 85027

== ENCOUNTER 2023-08-08 07:18 | Day surgery (SDC) | payer OTHER ==
[~2023-08-08 07:18] MED LIST changes: -HEPARIN SODIUM 1,000 UN/ML (10ML VL) ONE; -IOPAMIDOL-250 100ML BTL INTRAARTER ONE; -LIDOCAINE 1% INJ 10MG/ML (20 ML MDV) ONE; -LIDOCAINE 1% INJ 10MG/ML (20 ML MDV) SQ ONE; -MIDAZOLAM 2 MG/2 ML VIAL IV ONE; -NALOXONE 0.4 MG/ML 1 ML VIAL IVP PRN; -SODIUM CHLORIDE 0.9% 1,000 ML in EMPTY BAG 1 BAG IV ONE; -SODIUM CHLORIDE 0.9% 1,000 ML in EMPTY BAG 1 BAG IV SCH; -fentaNYL (PF) 50 MCG/ML 2 ML AMP ONE
[2023-08-08] MEDS: ASPIRIN 81 MG ONE (07:38)
[2023-08-08] MEDS: SODIUM CHLORIDE 0.9% 1,000 ML IV ONE (07:43)
[2023-08-08 07:59] LABS: Glucose,Whole Blood 83 mg/dL (70-110)
[2023-08-08] MEDS: LIDOCAINE 1% INJ 10MG/ML (20 ML MDV) SQ ONE (08:30)
[2023-08-08] MEDS: MIDAZOLAM 2 MG/2 ML VIAL IVP ONE (08:32)
[2023-08-08] MEDS: fentaNYL (PF) 50 MCG/1 ML VIAL IVP ONE (08:33)
[2023-08-08] MEDS: HEPARIN SODIUM 1,000 UN/ML (10ML VL) IVP ONE (09:06)
[2023-08-08] MEDS: niCARdipine Syringe (1,000 mcg/10 mL) INTRAARTER ONE (09:40)
[2023-08-08] MEDS: NITROGLYCERIN 1000MCG/10ML SYRINGE INTRAARTER ONE (09:40)
[2023-08-08] MEDS ORDERED: NAPROXEN 250 MG TAB PO PRN (09:49)
[2023-08-08] MEDS ORDERED: NALOXONE 0.4 MG/ML 1 ML VIAL IVP PRN (09:50)
--- NOTE | 2023-08-08 09:57 | P.PCN ---
Date of Procedure: 08/08/23 Operative Findings: AN ABDOMINAL AORTOGRAM AND BILATERAL LOWER EXTREMITIES RUNOFF PERFORMING PHYSICIAN: Marko Rincon MD PROCEDURE PERFORMED: 1. An abdominal aortogram 2. Bilateral lower extremities runoff 3. Successful balloon angioplasty of the left SFA with adjunctive use of atherectomy and intravascular imaging 4. Gradient measurement across the left SFA 5. Selective left SFA angiogram and right common femoral artery angiogram 6. Ultrasound-guided access of the right common femoral artery INDICATION: Symptomatic 57-year-old female patient with abnormal arterial duplex study. COMPLICATION: None LEVEL OF SEDATION: Moderate was sedation length of 75 minutes APPROACH: Right common femoral artery PROCEDURE DESCRIPTION: After obtaining informed consent and explaining the procedure benefits, risks, and complications, the patient was brought to the cardiac laboratory coordinator. The right groin was prepped and draped in sterile fashion. The right common femoral artery was cannulated using micropuncture technique, under ultrasound guidance. A micropuncture wire was advanced, and the micropuncture sheath was advanced over the wire, then the micropuncture sheath was exchanged over an 0.35 wire into a 5-Tristanian sheath dilator assembly then the wire and dilator were removed and sheath was flushed. We did an abdominal aortogram and bilateral lower extremities runoff using 5-Tristanian pigtail catheter using a power injection. The catheter was initially placed at the level of the renal arteries, and it was pulled into above the bifurcation of the aorta into right and left common iliac arteries. Subsequently I decided to do gradient measurement across the left SFA for intermediate to severe lesion involving the distal left SFA by the Mario's canal appeared to be concerning for napkin ring. Subsequently I did place an an arterial line. Then using a 5 Tristanian rim catheter I was able to advance an [address] the way to the distal left SFA/popliteal. Subsequently I did advance an 035 CXI catheter over the wire and the wire was pulled out. I did pullback across the lesion and I was able to get a peak to peak gradient of about 40 mmHg. At that point I decided to intervene on the left SFA. I did exchange my 11 cm 5 Tristanian sheath into 70 cm 6 Tristanian sheath using a 035 stiff Glidewire and the sheath was advanced up and over under fluoroscopy guidance into the proximal left SFA. After that I did selective left SFA angiogram. I was able to localize the lesion. I did intravascular ultrasound which showed a soft plaque with a diameter around 5 mm. I did atherectomy using the Hawk 1 device with extraction of soft plaque from the left SFA. Balloon angioplasty after that was performed using 5 mm chocolate balloon and subsequently 5 mm drug-coated balloon. Final angiogram was performed and showed an excellent angiographic results with good flow. The procedure was completed with no complication. Subsequently I did exchange my long sheath into short sheath using a 035 stiff Glidewire before I did selective right common femoral artery angiogram. The procedure was completed and there was no complications. SELECTIVE PERIPHERAL ANGIOGRAM: The abdominal aorta: Has mild disease only The common iliac arteries: Both iliacs appear to be angiographically normal The external iliac arteries: Both external iliacs are angiographically normal The internal iliac arteries: Both internal iliacs are patent The common femoral arteries: Both femoral arteries appear to have mild disease only Superficial femoral arteries: The right SFA appeared to have mild disease only. The left SFA has a napkin ring lesion involving the distal portion by the Mario's canal documented to be flow-limiting by gradient measurement with a peak to peak gradient of 40 mmHg Popliteal arteries: Both popliteal appears to have mild disease only Below the knees: The arteries below the knee were not well-visualized CONCLUSION: 1. Severe disease involving the distal left SFA with a focal lesion. I did perform successful NETWORKING TECHNICIAN of the distal left SFA with an excellent angiographic re sult 2. Severe below the knee disease bilaterally I would consider medical treatment at this point POSTPROCEDURE MANAGEMENT: Medical treatment
[2023-08-08] MEDS: IOPAMIDOL-250 100ML BTL INTRAARTER ONE (10:02)
--- NOTE | 2023-08-08 10:24 | IR ---
EXAMINATION TYPE: IR machine captain femoral popliteal, IR angio abdominal w runoff DATE OF EXAM: 08/08/2023 CLINICAL HISTORY: Leg pain. TECHNIQUE: Fluoroscopy. COMPARISON: None. FINDINGS: Fluoroscopic guidance was provided during abdominal angiogram with extremity runoff lower and angioplasty treatment procedure performed by Dr. Rincon. A total of 15.8 minutes of fluoroscopic t jordana was utilized during the procedure and 209 spot images was acquired. IMPRESSION: As Above. TOTAL DAP = 1462.9 micro-Gy x m2.
[2023-08-08] MEDS: hydrALAZINE HCL 20 MG/ML 1 ML VIAL ONE (12:18)
[2023-08-08 15:17] VITALS: RESP 16
[2023-08-08] MEDS: SODIUM CHLORIDE 0.9% 1,000 ML in EMPTY BAG 1 BAG IV SCH (17:03)
[2023-08-08] MEDS: EMPTY BAG 1 BAG with SODIUM CHLORIDE 0.9% 1,000 ML IV SCH (17:03)
[2023-08-08] MEDS: IBUPROFEN 600 MG TAB PO SCH (17:04)
[2023-08-08 17:53] LABS: Glucose,Whole Blood 111 mg/dL (70-110)
[2023-08-08] MEDS: ATORVASTATIN 40 MG TAB PO SCH (20:01)
[2023-08-08 20:22] LABS: Glucose,Whole Blood 136 mg/dL (70-110)
[2023-08-09 05:49] LABS: Glucose,Whole Blood 80 mg/dL (70-110)
[2023-08-09 07:06] LABS: African American GFR (CKD) >90 (>60 ml/min/1.73 sqM); Non-African American GFR(CKD) >90 (>60 ml/min/1.73 sqM)
[2023-08-09 07:25] VITALS: BP 122/71; TEMP 97.4
[2023-08-09] MEDS: SERTRALINE 25 MG TAB PO SCH (07:56)
[2023-08-09] MEDS: OLANZapine 7.5 MG TAB PO SCH (07:56)
[2023-08-09] MEDS: CLOPIDOGREL 75 MG TAB PO SCH (07:56)
[2023-08-09] MEDS: ASPIRIN 81 MG PO SCH (07:56)
[2023-08-09] MEDS: PARoxetine 20 MG TAB PO SCH (07:57)
[2023-08-09] MEDS: IPRATROPIUM 0.5 MG/2.5 ML NEBU INHALATION SCH (08:42)
[2023-08-09] MEDS: SYMBICORT 80-4.5 MCG INHALER INHALATION SCH (08:43)
[2023-08-09 11:15] VITALS: PULSE 62
[2023-08-09 11:23] VITALS: BMI 18.5
--- NOTE | 2023-08-09 12:16 | US ---
EXAMINATION TYPE: US lower ext pseudo artery RT DATE OF EXAM: 08/09/2023 COMPARISON: NONE CLINICAL INDICATION: Female, 57 years old with history of r/o pseudoaneurysm right groin; right groin access yesterday for procedure, no pain, no bruising, US to assess before patient in discharged EXAM PERFORMED: Grayscale and color Doppler duplex imaging performed of the groin, post cardiac rima ter to assess for pseudoaneurysm. SIDE PERFORMED: Right Color and Waveform Doppler performed to assess for the presence of pseudoaneurysm; Is there ultrasound evidence of a pseudoaneurysm: no Is there evidence of AV shunting: no Is there a fluid collection present: no IMPRESSION: No evidence of pseudoaneurysm.
[2023-08-09 12:18] LABS: Glucose,Whole Blood 82 mg/dL (70-110)
== END 2023-08-09 13:50 | disposition home or self-care (01) ==
LOC: CATHCVL 07:18 → 6NMEDSUR 09:45 → CATHCVL 08-09 13:50
PROVIDERS: ATTEND Internal Medicine Interventional Cardiology
DX: I70.213 Atherosclerosis of native arteries of extremities with intermittent claudication, bilateral legs (principal)
CPT/HCPCS: 37224; 37252; 75625; 94640 ×2; 82565; 93926; 93975; J2250; J0360; J2001; J1644; Q9966; J3010; J2305; 37225; 75716; 76937

== ENCOUNTER → 2024-01-11 | Outpatient (CLI) | payer OTHER ==
--- NOTE | 2024-01-11 12:36 | XR ---
Left foot. HISTORY: Pain in the ball of foot. COMPARISON: 06/01/2022. TECHNIQUE: 3 views of the left foot were obtained. FINDINGS: There is mild osteopenia. There is no fracture, dislocation or focal intraosseous abnormality. There is mild osteoarthritis of the first MTP joint. There are no soft tissue abnormalities. IMPRESSION: Mild osteoarthritis of the first MTP joint with mild osteopenia. No other significant abnormality. [facility], , 01/11/2024 12:34 PM
== END | disposition home or self-care (01) ==
LOC: RADXRMAIN 11:46
PROVIDERS: ATTEND Family Medicine
DX: M19.072 Primary osteoarthritis, left ankle and foot (principal); M85.88 Other specified disorders of bone density and structure, other site